=== PATIENT | male | born 1955 | race Two or more races ===

== ENCOUNTER 2025-01-25 14:36 | Inpatient (IN) | payer OTHER ==
[~2025-01-25] VITALS: Ht 177.8 cm; Wt 56.0 kg
--- NOTE | 2025-01-25 15:56 | ED.PDOC ---
GI ASSESSMENT HPI Comments This is a 69 year old male BIBA presenting to the ED with chief complaint of G- Tube displacement. Sister of patient reports that the patient's G-Tube had accidentally been removed 2 days ago and he has been without one since. Sister relays that they were advised by the patient's PCP to come into the ED for further evaluation. Sister states patient has had a G-Tube in place for the past 2 years. Patient denies any abdominal pain, N/V/D, dizziness, fever, or chills. Chief Complaint: Tube Replacement Time Seen by MD: 15:54 Reviewed Notes: Nurses Notes, Medications, Allergies Allergies: Coded Allergies: NO KNOWN ALLERGIES (Unverified , 01/25/25) Information Source: Patient Mode of Arrival: EMS Timing: Days Duration: Since onset Prehospital treatment: None Quality: None Vomitus: None Stool: Normal Severity: Mild Recent: None Recent Hx of: None Pain Location: None Modifying Factors: Nothing Past Medical History PAST MEDICAL HISTORY: Denies Surgical History (Other): G-Tube Family History Family History: Reviewed,noncontributory to illness Social History Smoker: Non-Smoker Alcohol: Denies ETOH Use Drugs: Denies Drug Use Lives In: Home Constitutional: denies: chills, diaphoresis, fatigue, fever, malaise, sweats, weakness, others EENTM: denies: blurred vision, double vision, ear bleeding, ear discharge, ear drainage, ear pain, ear ringing, eye pain, eye redness, hearing loss, mouth pain, mouth swelling, nasal discharge, nose bleeding, nose congestion, nose pain, photophobia, tearing, throat pain, throat swelling, voice changes, others Respiratory: denies: cough, hemoptysis, orthopnea, SOB at rest, shortness of breath, SOB with excertion, stridor, wheezing, others Cardiovascular: denies: chest pain, dizzy spells, diaphoresis, Dyspnea on exertion, edema, irregular heart beat, left arm pain, lightheadedness, palpitati ons, PND, syncope, others Gastrointestinal: denies: abdomen distended, abdominal pain, blood streaked bowels, constipated, diarrhea, dysphagia, difficulty swallowing, hematemesis, melena, nausea, poor appetite, poor fluid intake, rectal bleeding, rectal pain, vomiting, others Genitourinary: denies: burning, dysuria, flank pain, frequency, hematuria, incontinence, penile discharge, penile sore, pain, testicle pain, testicle swelling, urgency, others Neurological: denies: dizziness, fainting, headache, left sided numbness, left sided weakness, numbness, paresthesia, pre-existing deficit, right sided numbness, right sided weakness, seizure, speech problems, tingling, tremors, weakness, others Musculoskeletal: denies: back pain, gout, joint pain, joint swelling, muscle pain, muscle stiffness, neck pain, others Integumetry: denies: bruises, change in color, change in hair/nails, dryness, laceration, lesions, lumps, rash, wounds, others Allergic/Immunocompromised: denies: Difficulty Healing, Frequent Infections, Hives, Itching, others Hematologic/Lymphatic: denies: anemia, blood clots, easy bleeding, easy bruising, swollen glands, others Endocrine: denies: excessive hunger, excessive sweating, excessive thirst, excessive urination, flushing, intolerance to cold, intolerance to heat, unexplained weight gain, unexplained weight loss, others Psychiatric: denies: anxiety, bipolar disorder, depression, hopeless, panic disorder, schizophrenia, sleepless, suicidal, others All Other Systems: Reviewed and Negative Physical Exam General Appearance: No Apparent Distress, Other (Frail appearing) HEENT: Normal ENT Inspection, Pharynx Normal, TMs Normal Neck: Full Range of Motion, Non-Tender, Normal, Normal Inspection Respiratory: Chest Non-Tender, Lungs Clear, No Accessory Muscle Use, No Respiratory Distress, Normal Breath Sounds Cardiovascular: No Edema, No JVD, No Murmur, No Gallop, Normal Peripheral Pulses, Regular Rate/Rhythm Breast Exam: Deferred Gastrointestinal: No Organomegaly, Non Tender, No Pulsatile Mass, Normal Bowel Sounds, Soft, Other (G-Tube site present with no G-Tube in place.) Genitalia: Deferred Pelvic: Deferred Rectal: Deferred Extremities: NOT DONE Neurologic: NOT DONE Cerebellar Function: NOT DONE Reflexes: NOT DONE Skin: Other (Assessment of the G-tube site on the left upper abdomen, site appears to be close, patient will be admitted for surgical evaluation) Lymphatic: NOT DONE Was a procedure done? Was a procedure done?: No GI differential Dx Differential Diagnosis: Other (G-tube complication) X-Ray, Labs, Meds, VS Vital Signs Date Time Temp Pulse Resp B/P (MAP) Pulse Ox O2 Delivery O2 Flow Rate FiO2 01/25/25 14:41 97.7 100 16 116/81 95 97.7 Lab Test 01/25/25 16:37 Range/Units White Blood Count Pending Red Blood Count Pending Hemoglobin Pending Hematocrit Pending Mean Corpuscular Volume Pending Mean Corpuscular Hemoglobin Pending Mean Corpuscular Hemoglobin Concent Pending Red Cell Distribution Width Pending Platelet Count Pending Mean Platelet Volume Pending Neutrophils (%) (Auto) Pending Lymphocytes (%) (Auto) Pending Monocytes (%) (Auto) Pending Basophils (%) (Auto) Pending Neutrophils # (Auto) Pending Lymphocytes # (Auto) Pending Monocytes # (Auto) Pending Sodium Level Pending Potassium Level Pending Chloride Level Pending Carbon Dioxide Level Pending Anion Gap Pending Blood Urea Nitrogen Pending Creatinine Pending Glomerular Filtration Rate Calc Pending BUN/Creatinine Ratio Pending Serum Glucose Pending Calcium Level Pending X-Ray, Labs, Meds, VS Comment Imaging was reviewed by this provider, there is no obvious pathological or acute disease process. Pending radiology review Labs were reviewed by this provider, no abnormalities Vital signs reviewed by this provider, clinically stable Time of 1ST Reevaluation: 17:02 Reevaluation 1ST: Unchanged Patient Education/Counseling: Diagnosis, Treatment Family Education/Counseling: Diagnosis SEPSIS Sepsis Screen Date sepsis recognized/suspect: Jan 25, 2025 Time Sepsis recognized/suspect: 1441 Recent Procedure: No On Antibiotic Therapy: No Respiratory Rate >20: No Heart Rate >90: Yes Temp<36 C (96.8 F) or >38.3 C: No SBP <90 or MAP <65 mmHG: No New Acute Mental Status Change: No Is the patient on CPAP, BIPAP,: No Physician Orders Complete Blood Count (01/25/25 16:26) Basic Metabolic Panel (01/25/25 16:26) Urinalysis (01/25/25 16:26) Vital Signs Date Time Temp Pulse Resp B/P (MAP) Pulse Ox O2 Delivery O2 Flow Rate FiO2 01/25/25 14:41 97.7 100 16 116/81 95 97.7 Laboratory Tests Test 01/25/25 16:37 White Blood Count Pending Departure 1 Departure Time of Disposition: 16:58 Impression: Primary Impression: Complication of gastrostomy tube Disposition: 01 HOME / SELF CARE / HOMELESS Condition: Fair Critical Care Note Critical Care Time?: No Stability Stability form required: No Heart Score Heart Score: Heart Score Response (Comments) Value History N/A 0 EKG N/A 0 Age N/A 0 Risk Factors N/A 0 Troponin N/A 0 Total 0 I personally scribed for LANDON OCONNOR ([email or web address]) on 01/25/25 at 15:56. Electronically submitted by Osmani Lemus ([email or web address]). LANDON OCONNOR Jan 25, 2025 15:56
[2025-01-25 17:00] LABS: Hematocrit 42.6 % (41.0-53.0); Hemoglobin 14.9 g/dL (13.5-17.5); Mean Corpuscular Hemoglobin 31.3 pg (28.0-32.0); Mean Corpuscular Volume 89.4 fL (80.0-100.0); Nucleated Red Blood Cells % 0.1 %
[2025-01-25 17:08] LABS: Chloride 101 mmol/L (98-107); Potassium 4.5 mmol/L (3.5-5.1); Sodium 140 mmol/L (136-145)
[2025-01-25 17:09] LABS: Anion Gap 9 (5-15); Carbon Dioxide 30 mmol/L (20-31)
[2025-01-25 17:13] LABS: Calcium 10.8 mg/dL (8.7-10.4)
[2025-01-25 17:15] LABS: BUN/Creatinine Ratio 19.5 (10.0-20.0); Blood Urea Nitrogen 16 mg/dL (9-23); Glucose 75 mg/dL (74-106)
[2025-01-25] MEDS ORDERED: ONDANSETRON HCL 4 MG/2 ML VIAL IV PRN ×2 (19:15→22:45)
[2025-01-25 19:40] VITALS: PULSE 108; RESP 20; O2SAT 94
[2025-01-25] MEDS ORDERED: ACETAMINOPHEN 650 MG RECT SUPP PR PRN (22:45)
[2025-01-25] MEDS ORDERED: NITROGLYCERIN 0.4 MG SL TAB SL PRN (22:45)
[2025-01-25] MEDS ORDERED: MORPHINE SULFATE INJ 2 MG/ml SYRG IV PRN (22:45)
[2025-01-25] MEDS: D5W/SOD CHL 0.45% 1,000 ML IV SCH (23:30)
[2025-01-26] VITALS (7 sets, daily range): BP systolic 106–114; BP diastolic 54–85; PULSE 74–105; RESP 18–20; TEMP 97.5–98.6; O2SAT 94–100
--- NOTE | 2025-01-26 02:06 | DVHHP2 ---
AUREA SAINI NP 01/26/25 0206: History of Present Illness Reason for Visit: Dislodged gastric tube History of Present Illness 69-year-old male with past medical history of oxygen-dependent COPD, CVA, dementia, depression, anxiety, atrial arrhythmia, dysphagia presents with complaints of a dislodged gastric tube. Information in this HPI is limited due to the patient being a poor historian. It was acquired with the assistance of the patient's sister Linda via telephone. Patient's sister states gastric tube was dislodged 2 nights ago. She contacted patient's PCP who told her that they would need referral to get PEG tube placed again. Home health nurse went into go see the patient yesterday and advised him to go to the emergency department. In the emergency department the provider did attempt to her placed the PEG tube however was unable to. Patient's sister endorses he gets 3 tube feedings daily. Patient has not been eating or drinking adequately the last 2 days. During the emergency department evaluation CBC, CMP is unremarkable. Patient has no complaints of fevers, shortness of breath, chest pain, palpitations, abdominal pain, nausea, vomiting. 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 Psych: Anxiety, Depression Smoke: No ALCOHOL: none Drugs: None Lives: with Family Review of Systems Constitutional: Yes: Weakness; No: Fever, Chills, Sweats, Malaise, Other Eyes: No: Pain, Vision change, Conjunctivae inflammation, Eyelid inflammation, Other, Redness ENT: No: Ear pain, Ear discharge, Nose pain, Nose discharge, Nose congestion, Mouth pain, Mouth swelling, Throat pain, Throat swelling, Other Respiratory: No: Cough, Dry, Shortness of breath, SOB with excertion, Wheezing, Hemoptysis, Pleuritic Pain, Sputum, Wheezing, Other Cardiovascular: No: Chest Pain, Palpitations, Orthopnea, Paroxysmal Noc. Dyspnea, Edema, Lt Headedness, Other Gastrointestinal: Other (Dislodged G-tube); No: Nausea, Vomiting, Abdominal Pain, Diarrhea, Constipation, Melena, Hematochezia Genitourinary: No Dysuria, No Frequency, No Incontinence, No Hematuria, No Retention, No Other Musculoskeletal: No: other, neck pain, shoulder pain, arm pain, back pain, hand pain, leg pain, foot pain Skin: No: Rash, Lesions, Jaundice, Bruising, Other Neurological: No: Weakness, Numbness, Incoordination, Change in speech, Confusion, Seizures, Other Allergies: Coded Allergies: NO KNOWN ALLERGIES (Unverified , 01/25/25) Medications Current Medications Medications Dose Ordered Sig/Tobias Route Start Time Stop Time Status Last Admin Dose Admin Dextrose/Sodium Chloride 1,000 ml @ 75 mls/hr [id number] IV 01/25/25 22:45 01/25/25 23:30 75 MLS/HR Ondansetron HCl 4 mg Q4HP PRN IV 01/25/25 22:45 Enoxaparin Sodium 40 mg DAILY SC 01/26/25 10:00 Nitroglycerin 0.4 mg Q5MINP PRN SL 01/25/25 22:45 Morphine Sulfate 2 mg Q30M PRN IV 01/25/25 22:45 Acetaminophen 650 mg Q6HP PRN NC 01/25/25 22:45 Exam Vital Signs Vital Signs Date Time Temp Pulse Resp B/P (MAP) Pulse Ox O2 Delivery O2 Flow Rate FiO2 01/25/25 19:40 97.7 108 20 111/67 (82) 94 97.7 01/25/25 19:40 Room Air* 0 21 General Appearance: Alert (To self, place), Cooperative, moderate distress, Other (Ill-appearing, malnourished, frail) HEENT: Atraumatic, PERRLA, EOMI Respiratory: Clear to auscultation, Normal air movement Cardiovascular: Regular rate, Normal S1, Normal S2 Abdominal: Normal bowel sounds, No tenderness, Other (Concave abdomen) Extremities: No clubbing, No cyanosis, No edema Neuro: Normal speech Psych/Mental Status: Mental status NL, Mood NL Labs/Xrays Labs Test 01/25/25 16:37 Range/Units White Blood Count 10.4 4.4-10.8 10^3/uL Red Blood Count 4.77 4.5-5.90 10^6/uL Hemoglobin 14.9 13.5-17.5 g/dL Hematocrit 42.6 41.0-53.0 % Mean Corpuscular Volume 89.4 80.0-100.0 fL Mean Corpuscular Hemoglobin 31.3 28.0-32.0 pg Mean Corpuscular Hemoglobin Concent 35.0 32.0-36.0 g/dL Red Cell Distribution Width 13.8 11.8-14.3 % Platelet Count 490 H 140-450 10^3/uL Mean Platelet Volume 7.6 6.9-10.8 fL Neutrophils (%) (Auto) 77.0 37.0-80.0 % Lymphocytes (%) (Auto) 13.5 10.0-50.0 % Monocytes (%) (Auto) 6.6 0.0-12.0 % Eosinophils (%) (Auto) 2.1 0.0-7.0 % Basophils (%) (Auto) 0.8 0.0-2.0 % Neutrophils # (Auto) 8.0 1.6-8.6 10 ^3/uL Lymphocytes # (Auto) 1.4 0.4-5.4 10 ^3/uL Monocytes # (Auto) 0.7 0-1.3 10 ^3/uL Eosinophils # (Auto) 0.2 0-0.8 10 ^3/uL Basophils # (Auto) 0.1 0-0.2 10 ^3/uL Nucleated Red Blood Cells 0.1 % Sodium Level 140 136-145 mmol/L Potassium Level 4.5 3.5-5.1 mmol/L Chloride Level 101 98-107 mmol/L Carbon Dioxide Level 30 20-31 mmol/L Anion Gap 9 5-15 Blood Urea Nitrogen 16 9-23 mg/dL Creatinine 0.82 0.700-1.30 mg/dL Glomerular Filtration Rate Calc 95 >90 mL/min BUN/Creatinine Ratio 19.5 10.0-20.0 Serum Glucose 75 74-106 mg/dL Calcium Level 10.8 H 8.7-10.4 mg/dL SEPSIS Sepsis Screen Date sepsis recognized/suspect: Jan 25, 2025 Time Sepsis recognized/suspect: 1441 Recent Procedure: No On Antibiotic Therapy: No Respiratory Rate >20: No Heart Rate >90: Yes Temp<36 C (96.8 F) or >38.3 C: No SBP <90 or MAP <65 mmHG: No New Acute Mental Status Change: No Is the patient on CPAP, BIPAP,: No Physician Orders Admit (01/25/25 22:38) Code Status (01/25/25 22:38) Vital Signs .PER UNIT PROTOCOL (01/25/25 22:38) Review Orders With Adm. (01/25/25 22:38) Encourage Activity As Tolerate (01/25/25:38) Npo (Nothing By Mouth) Diet (01/26/25 Breakfast) Oxygen By Face Mask (01/25/25:38) Notify Md Of Changes From Base (01/25/25 22:38) Advance Directive (01/25/25:38) Basic Metabolic Panel (01/26/25 05:00) Basic Metabolic Panel (01/27/25 05:00) Basic Metabolic Panel (01/28/25 05:00) Basic Metabolic Panel (01/29/25 05:00) Complete Blood Count (01/26/25 05:00) Complete Blood Count (01/27/25 05:00) Complete Blood Count (01/28/25 05:00) Complete Blood Count (01/29/25 05:00) Complete Blood Count (01/30/25 05:00) D5w/Sod Chl 0.45% (D5w 1/2ns) (01/25/25 22:45) Patient Condition (01/25/25 22:38) Allergies (01/25/25:38) Ondansetron Hcl (Zofran) (01/25/25 22:45) Enoxaparin Sodium (Lovenox) (01/26/25 10:00) Sequential Compression Device (01/25/25 ) Nitroglycerin Sublingual (Ntrostat Subli (01/25/25 22:45) Morphine Sulfate Injection (01/25/25 22:45) Stat Ekg For Chest Pain (01/25/25:38) Notify Md Of Changes From Base (01/25/25 22:38) Ballistics Laboratory Gunsmith For 24 Hours (01/25/25 22:38) Emergency Dysrhythmia Protocol (01/25/25:38) Rhythm Strips Once Every Shift (01/25/25 22:38) Oxygen By Nasal Cannula (01/25/25:38) Prothrombin Time W/ Inr (01/26/25 04:00) Acetaminophen Suppository (Tylenol Suppo (01/25/25 22:45) * [employer] Broker (01/25/25 22:38) * Radiologist Consult (01/25/25 22:44) Vital Signs Date Time Temp Pulse Resp B/P (MAP) Pulse Ox O2 Delivery O2 Flow Rate FiO2 01/25/25 19:40 97.7 108 20 111/67 (82) 94 97.7 01/25/25 19:40 108 20 94 Room Air* 0 21 01/25/25 18:48 98.2 107 18 118/76 (90) 96 98.2 Laboratory Tests Test 01/25/25 16:37 White Blood Count 10.4 10^3/uL (4.4-10.8) Medications Medications Dose Ordered Sig/Tobias Route Start Time Stop Time Status Last Admin Dose Admin Dextrose/Sodium Chloride 1,000 ml @ 75 mls/hr [id number] IV 01/25/25 22:45 01/25/25 23:30 75 MLS/HR Assessment/Plan Assessment/Plan Malfunctioning gastric tube, dislodged Dysphagia Chronic bed bound HX COPD HX CVA HX Dementia, depression, anxiety Plan Admit medical floor Plan for Gastric tube replacement. Gastroenterology consult. Interventional radiology consult IVF Bronchodilators. As needed a supplemental oxygen to maintain O2 saturation great er than 93%. Incentive thermometer. DVT ppx lovenox Plan discussed with: Patient, Other (Sister Linda via telephone) My Orders Orders - AUREA SAINI NP Procedure Category Date Status Time Admit ADMIT 01/25/25 Transmitted 22:38 Code Status CODE 01/25/25 Transmitted 22:38 Vital Signs VALENTIN 01/25/25 In Process 22:38 Review Orders With VALENTIN 01/25/25 In Process 22:38 Encourage Activity As VALENTIN 01/25/25 In Process Tolerate 22:38 Npo (Nothing By DIET 01/26/25 Transmitted Mouth) Diet Breakfast Oxygen By Face Mask RT 01/25/25 Transmitted 22:38 Notify Of Changes VALENTIN 01/25/25 In Process From Base 22:38 Advance Directive VALENTIN 01/25/25 In Process 22:38 Basic Metabolic Panel LAB 01/26/25 Logged 05:00 Basic Metabolic Panel LAB 01/27/25 Verified 05:00 Basic Metabolic Panel LAB 01/28/25 Verified 05:00 Basic Metabolic Panel LAB 01/29/25 Verified 05:00 Complete Blood Count LAB 01/26/25 Logged 05:00 Complete Blood Count LAB 01/27/25 Verified 05:00 Complete Blood Count LAB 01/28/25 Verified 05:00 Complete Blood Count LAB 01/29/25 Verified 05:00 Complete Blood Count LAB 01/30/25 Verified 05:00 D5w/Sod Chl 0.45% PHA 01/25/25 In Process (D5w 1/2ns) 22:45 Patient Condition ORDERS 01/25/25 Transmitted 22:38 Allergies VALENTIN 01/25/25 In Process 22:38 Ondansetron Hcl PHA 01/25/25 In Process (Zofran) 22:45 Enoxaparin Sodium PHA 01/26/25 In Process (Lovenox) 10:00 Sequential VALENTIN 01/25/25 In Process Compression Device Nitroglycerin PHA 01/25/25 In Process Sublingual (Ntrostat 22:45 Morphine Sulfate PHA 01/25/25 In Process Injection 22:45 Stat Ekg For Chest VALENTIN 01/25/25 In Process Pain 22:38 Notify Of Changes [facility] [place] 01/25/25 In Process From Base 22:38 Ballistics Laboratory Gunsmith For [facility] [place] 01/25/25 In Process 24 Hours 22:38 Emergency Dysrhythmia [facility] 01/25/25 In Process Protocol 22:38 Rhythm Strips Once [facility] [place] 01/25/25 In Process Every Shift 22:38 Oxygen By Nasal RT 01/25/25 Transmitted Cannula 22:38 Prothrombin Time W/ LAB 01/26/25 Logged INR 04:00 Acetaminophen PHA 01/25/25 In Process Suppository (Tylenol 22:45 * [employer] CONS 01/25/25 Transmitted 22:38 * Radiologist Consult CONS 01/25/25 Transmitted 22:44 Date of Service: Jan 26, 2025 Billing Provider: VERNON GENAO MD Common Visit Codes: NOT BILLABLE VERNON GENAO MD 01/26/25 1549: Review of Systems Allergies: Coded Allergies: NO KNOWN ALLERGIES (Unverified , 01/25/25) AUREA SAINI NP Jan 26, 2025 02:06 VERNON GENAO MD Jan 26, 2025 15:49
[2025-01-26] MEDS ORDERED: ASPI1TAB20 PO (04:00)
[2025-01-26] MEDS ORDERED: DIVA-91 PO (04:09)
[2025-01-26 04:16] LABS: Urine Protein, UAD 1+ (Negative)
[2025-01-26] MEDS ORDERED: CHOL20007 OR (04:20)
--- NOTE | 2025-01-26 06:46 | DVH ---
EXAM: XY CHEST XRAY 1 VIEW HISTORY: DOCTORS REQUEST COMPARISON: For reasons unknown, numerous previous chest x-rays were not made available on the PACS system for viewing. TECHNIQUE: Portable upright AP view of the chest was performed. FINDINGS: No pneumothorax, consolidative infiltrates, or pulmonary edema. Skin lines overlie the right hemithorax simulating pneumothorax. The heart is not enlarged. IMPRESSION: No acute intrathoracic process.
[2025-01-26 07:57] LABS: Hematocrit 51.4 % (41.0-53.0); Hemoglobin 17.2 g/dL (13.5-17.5); Mean Corpuscular Hemoglobin 30.8 pg (28.0-32.0); Mean Corpuscular Volume 91.8 fL (80.0-100.0); Nucleated Red Blood Cells % 0.0 %
[2025-01-26 08:00] LABS: INR 1.08 (0.9-1.15); Prothrombin Time 11.4 sec (9.3-11.8)
[2025-01-26] MEDS: ENOXAPARIN SOD 40 MG/0.4 ML SYRINGE SC SCH (10:00)
[2025-01-26 10:15] LABS: Chloride 101 mmol/L (98-107); Sodium 140 mmol/L (136-145)
[2025-01-26 10:16] LABS: Anion Gap 17 (5-15); Carbon Dioxide 22 mmol/L (20-31)
[2025-01-26 10:21] LABS: BUN/Creatinine Ratio 25.0 (10.0-20.0); Blood Urea Nitrogen 22 mg/dL (9-23); Glucose 98 mg/dL (74-106)
[2025-01-26 10:24] LABS: Calcium 11.3 mg/dL (8.7-10.4); Potassium 5.3 mmol/L (3.5-5.1)
--- NOTE | 2025-01-26 11:22 | DVHCONRES ---
Date Seen: Jan 26, 2025 Resident Creating Document: ATIF MURILLO RESIDENT History of Present Illness 69-year-old male with past medical history of oxygen-dependent COPD, CVA, dementia, depression, anxiety, atrial arrhythmia, dysphagia presents with complaints of a dislodged gastric tube. Information in this HPI is limited due to the patient being a poor historian. It was acquired with the assistance of the patient's sister Linda via telephone. Patient's sister states gastric tube was dislodged 2 nights ago. She contacted patient's PCP who told her that they would need referral to get PEG tube placed again. Home health nurse went into go see the patient yesterday and advised him to go to the emergency department. In the emergency department the provider did attempt to her placed the PEG tube however was unable to. Patient's sister endorses he gets 3 tube feedings daily. Patient has not been eating or drinking adequately the last 2 days. During the emergency department evaluation CBC, CMP is unremarkable. Patient has no complaints of fevers, shortness of breath, chest pain, palpitations, abdominal pain, nausea, vomiting. GI consulted for PEG tube replacement Patient seen and examined. A&O x2. Patient would need EGD and PEG tube placement as the foramen appears to be closed Allergies: Coded Allergies: NO KNOWN ALLERGIES (Unverified , 01/25/25) Home Meds Reported Medications Cholecalciferol (VITAMIN D3) 2,000 Unit Tab, 2000 UNIT OR DAILY, TAB 01/26/25 Divalproex Sodium (Depakote) 500 Mg Tab, 500 MG PO DAILY, TAB 01/26/25 Aspirin (Aspir-81) 81 Mg Tab, 1 TAB PO DAILY, #90 TAB 1 Refill 01/26/25 Current Medications Current Medications Medications (Trade) Dose Ordered Sig/Tobias Route PRN Reason Start Time Stop Time Status Last Admin Ondansetron HCl (Zofran) 4 mg Q4HP PRN IV NAUSEA / VOMITING 01/25/25 19:15 01/25/25 20:42 DC Dextrose/Sodium Chloride 1,000 ml @ 75 mls/hr [id number] IV 01/25/25 22:45 01/25/25 23:30 Ondansetron HCl (Zofran) 4 mg Q4HP PRN IV NAUSEA / VOMITING 01/25/25 22:45 Enoxaparin Sodium (Lovenox) 40 mg DAILY SC 01/26/25 10:00 Nitroglycerin (Ntrostat Sublingual) 0.4 mg Q5MINP PRN SL FOR CHEST PAIN 01/25/25 22:45 Morphine Sulfate 2 mg Q30M PRN IV FOR CHEST PAIN 01/25/25 22:45 Acetaminophen (Tylenol Suppository) 650 mg Q6HP PRN [place] PAIN SCALE 1-3 OR TEMP>100.4 01/25/25 22:45 Vital Signs Vital Signs Date Time Temp Pulse Resp B/P (MAP) Pulse Ox O2 Delivery O2 Flow Rate FiO2 01/26/25 08:00 103 01/26/25 08:00 97.7 21 98/58 (71) 97 97.7 01/26/25 07:31 Nasal Cannula* 2 28 Physical Exam Patient lying in bed, in no acute distress General: Cachectic-appearing, afebrile, palor, mucosae are moist Cardiovascular: Regular S1 and S2. No murmurs, gallops or rubs. No JVD elevation. No pedal edema Respiratory: Normal B/L air entry on room air. Clear lung sounds on auscultation Abdomen: Soft, nontender, nondistended, normoactive bowel sounds, no rebound tenderness, dislodged G-tube, foramen appears to be closed at this time. Genitourinary: Deferred Psych/Mental Status: A/Ox2 Labs/Diagnostic Data Labs Test 01/26/25 07:32 01/25/25 20:55 Range/Units White Blood Count 18.5 #H 4.4-10.8 10^3/uL Red Blood Count 5.60 4.5-5.90 10^6/uL Hemoglobin 17.2 # 13.5-17.5 g/dL Hematocrit 51.4 # 41.0-53.0 % Mean Corpuscular Volume 91.8 80.0-100.0 fL Mean Corpuscular Hemoglobin 30.8 28.0-32.0 pg Mean Corpuscular Hemoglobin Concent 33.6 32.0-36.0 g/dL Red Cell Distribution Width 14.3 11.8-14.3 % Platelet Count 417 140-450 10^3/uL Mean Platelet Volume 7.6 6.9-10.8 fL Neutrophils (%) (Auto) 90.8 H 37.0-80.0 % Lymphocytes (%) (Auto) 4.2 L 10.0-50.0 % Monocytes (%) (Auto) 4.5 0.0-12.0 % Eosinophils (%) (Auto) 0.2 0.0-7.0 % Basophils (%) (Auto) 0.3 0.0-2.0 % Neutrophils # (Auto) 16.8 H 1.6-8.6 10 ^3/uL Lymphocytes # (Auto) 0.8 0.4-5.4 10 ^3/uL Monocytes # (Auto) 0.8 0-1.3 10 ^3/uL Eosinophils # (Auto) 0 0-0.8 10 ^3/uL Basophils # (Auto) 0.1 0-0.2 10 ^3/uL Nucleated Red Blood Cells 0.0 % Prothrombin Time 11.4 9.3-11.8 sec Prothrombin Time INR 1.08 0.9-1.15 Sodium Level 140 136-145 mmol/L Potassium Level 5.3 H 3.5-5.1 mmol/L Chloride Level 101 98-107 mmol/L Carbon Dioxide Level 22 20-31 mmol/L Anion Gap 17 H 5-15 Blood Urea Nitrogen 22 9-23 mg/dL Creatinine 0.88 0.700-1.30 mg/dL Glomerular Filtration Rate Calc 93 >90 mL/min BUN/Creatinine Ratio 25.0 H 10.0-20.0 Serum Glucose 98 74-106 mg/dL Calcium Level 11.3 H 8.7-10.4 mg/dL Urine Color Yellow Yellow Urine Clarity Turbid H Clear Urine pH 6.0 5.0-9.0 Urine Specific [place] 1.030 1.001-1.035 Urine Protein 1+ H Negative Urine Ketones 1+ H Negative Urine Blood Negative Negative /uL Urine Nitrite 2+ H Negative Urine Bilirubin Negative Negative Urine Urobilinogen Normal Negative mg/dL Urine Leukocyte Esterase Trace Negative /uL Urine RBC None seen 0 - 3 /hpf Urine Microscopic WBC 3 0-3 /HPF Urine Squamous Epithelial Cells Few <5 /hpf Urine Calcium Oxalate Crystals Mod None Seen Urine Bacteria Many H None Seen /hpf Urine Mucus Few None Seen Urine Glucose Normal Normal mg/dL Assessment PEG tube dislodgement Dysphagia Failure to thrive Hyperkalemia COPD on chronic oxygen dependence History of CVA History of dementia Plan/Recommendation Plan: Recommendation: Dr. Gonzalez: Patient will be scheduled for PEG tube reinsertion with upper EGD 01/27/2025. NPO after midnight. Obtain consents. Follow up with CMP PT/INR WNL Started Clinimix NPO after midnight We will continue to follow up Thank you for consulting GI Case discussed Dr. Gonzalez Plan discussed with: Other (Nurse) ATIF MURILLO RESIDENT Jan 26, 2025 11:22
[2025-01-26] MEDS ORDERED: DEXTROSE (50%) 50ML SYRG IV PRN (11:30)
[2025-01-26] MEDS ORDERED: CLINIMIX PER PHARMACY 0 ML IV SCH (11:30)
[2025-01-26 11:31] LABS: Alanine Aminotransferase 16.0 U/L (7-40); Bilirubin, Total 0.7 mg/dL (0.2-1.0)
[2025-01-26 11:35] LABS: Alkaline Phosphatase 141.0 U/L (46-116)
[2025-01-26 11:36] LABS: Albumin 4.9 g/dL (3.2-4.8); Total Protein 9.0 g/dL (5.7-8.2)
[2025-01-26] MEDS: ACCU-CHEK COMFORT CURVE STRIP VI SCH (12:00)
[2025-01-26 13:35] LABS: Bilirubin, Direct 0.2 mg/dL (<0.3)
[2025-01-26] MEDS: AMINO ACID INFUSION IN D10W 1,000 ML IV SCH (22:20)
[2025-01-27] VITALS (11 sets, daily range): BP systolic 107–129; BP diastolic 54–68; PULSE 89–111; RESP 14–50; TEMP 97.4–99; O2SAT 94–100
[2025-01-27] MEDS: InsuLIN REG 1unit/0.01ml Soln (100units/ml) SC SCH
[2025-01-27 07:29] LABS: Hematocrit 44.5 % (41.0-53.0); Hemoglobin 15.0 g/dL (13.5-17.5); Mean Corpuscular Hemoglobin 30.0 pg (28.0-32.0); Mean Corpuscular Volume 89.0 fL (80.0-100.0)
[2025-01-27 08:35] LABS: Total Cells Counted 100.0 (100)
[2025-01-27 11:04] LABS: Albumin 3.7 g/dL (3.2-4.8); Alkaline Phosphatase 106 U/L (46-116); Anion Gap 10 (5-15); BUN/Creatinine Ratio 27.4 (10.0-20.0); Blood Urea Nitrogen 20 mg/dL (9-23); Calcium 10.2 mg/dL (8.7-10.4); Carbon Dioxide 27 mmol/L (20-31); Chloride 102 mmol/L (98-107); Glucose 102 mg/dL (74-106); Magnesium 1.6 mg/dL (1.6-2.6); Potassium 4.3 mmol/L (3.5-5.1); Sodium 139 mmol/L (136-145); Total Protein 6.9 g/dL (5.7-8.2); Triglycerides 42 mg/dL (< 150)
[2025-01-27 11:05] LABS: Bilirubin, Total 0.7 mg/dL (0.2-1.0)
[2025-01-27 11:14] LABS: Alanine Aminotransferase < 9 U/L (7-40)
[2025-01-27] MEDS: ceFAZolin 1GM/50ML 50 ML IV ONE (14:15)
[2025-01-27] MEDS ORDERED: PROPOFOL 10 MG/ML 20 ML IV ONE (14:30)
[2025-01-27] MEDS ORDERED: LIDOCAINE 2% (LOCAL ANESTH.) PF 5ml SDV ONE (14:30)
[2025-01-27] MEDS ORDERED: LIDOCAINE 1% INJ PF 5ML AMP ONE (14:30)
[2025-01-27] MEDS ORDERED: ceFAZolin 1GM VL ONE (14:40)
--- NOTE | 2025-01-27 14:56 | DVHOP2 ---
Operative Report DATE OF OPERATION: 01/27/25 PROCEDURE: Upper Endoscopy with PEG tube placement. PREOPERATIVE INDICATION: The patient is a 69 -year-old male undergoing endoscopy for placement of a new PEG tube, previous PEG tube was dislodged and the gastrostomy site was closed POSTOPERATIVE DIAGNOSES: 1. Upper endoscopy revealed [id number] gastritis with some flecks of old blood 2. A percutaneous gastrostomy tube was placed through the anterior abdominal wall under sterile conditions by Dr. Joe Gonzalez using endoscopic guidance and assistance by wv going through the same gastrostomy opening however internally a new opening was created in the body of the stomach close to the previous g astrostomy tube site 3. Placement of the tube was confirmed by repeat endoscopy and G-tube site was prepped and dressed in a sterile PROCEDURE PERFORMED BY: Jeanne Gonzalez GI NURSE: Daniella SCOPE: Olympus videoendoscope. ASA CLASS: 3 PREOPERATIVE MEDICATIONS: Mac sedation, Julio César Michaud PROCEDURE IN DETAIL: After obtaining an informed consent, the patient was placed on left lateral decubitus position. The patient was then sedated with the above medications. A bite block was placed between his teeth. The endoscope was then passed through the oropharynx, into the esophagus, and through the stomach and pylorus up to the second and third part of the duodenum. The endoscope was then withdrawn. The body of the stomach showed evidence of moderate gastritis with some flecks of old blood On retroflexion the fundus and cardia were normal. The endoscope light was identified through the anterior abdominal wall Under sterile conditions a new percutaneous gastrostomy tube was placed through the anterior abdominal wall through the same gastrostomy port However the needle presented or internally a few cm away from the previous gastrostomy tube site which was closed. Percutaneous gastrostomy tube was placed through the anterior abdominal wall using endoscopic guidance and assistance as per standard protocol Repeat endoscopy was performed to confirm adequate placement. The G-tube site was prepped and dressed in a sterile fashion The patient tolerated the procedure well without difficulty. COMPLICATIONS : None SPECIMENS: None DISPOSITION: Transfer back to the floor Stable PLAN: 1. See postop PEG tube placement instructions 2. Will place pt on Protonix 40 mg bid IV 3. Continue IV Clinimix for now until G-tube feedings have been resumed JEANNE GONZALEZ MD Jan 27, 2025 14:56
--- NOTE | 2025-01-27 15:02 | DVHINCON2 ---
Date of service: Jan 27, 2025 Allergies: Coded Allergies: NO KNOWN ALLERGIES (Unverified , 01/25/25) Home Meds Reported Medications Cholecalciferol (VITAMIN D3) 2,000 Unit Tab, 2000 UNIT OR DAILY, TAB 01/26/25 Divalproex Sodium (Depakote) 500 Mg Tab, 500 MG PO DAILY, TAB 01/26/25 Aspirin (Aspir-81) 81 Mg Tab, 1 TAB PO DAILY, #90 TAB 1 Refill 01/26/25 Current Medications Current Medications Medications (Trade) Dose Ordered Sig/Tobias Route PRN Reason Start Time Stop Time Status Last Admin Insulin Human Regular (InsuLIN R) FOLLOW SLIDING SCALE Q6HR SC 01/27/25 00:00 01/27/25 06:02 Amino Acids/ Electrolytes/ Dextrose 1,000 ml @ 41 mls/hr DAILY@2200 IV 01/26/25 22:00 01/26/25 22:20 Vital Signs Vital Signs Date Time Temp Pulse Resp B/P (MAP) Pulse Ox O2 Delivery O2 Flow Rate FiO2 01/27/25 12:54 97.4 107 16 121/63 (82) 96 97.4 01/27/25 08:00 Nasal Cannula* 2 28 Labs/Diagnostic Data Labs Test 01/27/25 12:03 01/27/25 10:10 01/27/25 06:49 01/26/25 07:32 Range/Units POC Glucose 125 H 70-106 mg/dl Sodium Level 139 136-145 mmol/L Potassium Level 4.3 3.5-5.1 mmol/L Chloride Level 102 98-107 mmol/L Carbon Dioxide Level 27 20-31 mmol/L Anion Gap 10 5-15 Blood Urea Nitrogen 20 9-23 mg/dL Creatinine 0.73 0.700-1.30 mg/dL Glomerular Filtration Rate Calc 98 >90 mL/min BUN/Creatinine Ratio 27.4 H 10.0-20.0 Serum Glucose 102 74-106 mg/dL Calcium Level 10.2 8.7-10.4 mg/dL Phosphorus Level 2.4 2.4-5.1 mg/dL Magnesium Level 1.6 1.6-2.6 mg/dL Total Bilirubin 0.7 0.2-1.0 mg/dL Aspartate Amino Transferase (AST) 16 13-40 U/L Alanine Aminotransferase (ALT) < 9 7-40 U/L Alkaline Phosphatase 106 46-116 U/L Total Protein 6.9 5.7-8.2 g/dL Albumin 3.7 3.2-4.8 g/dL Triglycerides Level 42 < 150 mg/dL White Blood Count 28.8 #H 4.4-10.8 10^3/uL Red Blood Count 5.00 4.5-5.90 10^6/uL Hemoglobin 15.0 13.5-17.5 g/dL Hematocrit 44.5 # 41.0-53.0 % Mean Corpuscular Volume 89.0 80.0-100.0 fL Mean Corpuscular Hemoglobin 30.0 28.0-32.0 pg Mean Corpuscular Hemoglobin Concent 33.8 32.0-36.0 g/dL Red Cell Distribution Width 13.9 11.8-14.3 % Platelet Count 372 140-450 10^3/uL Mean Platelet Volume 8.1 6.9-10.8 fL Neutrophils (%) (Auto) 37.0-80.0 % Lymphocytes (%) (Auto) 10.0-50.0 % Monocytes (%) (Auto) 0.0-12.0 % Basophils (%) (Auto) 0.0-2.0 % Neutrophils # (Auto) 1.6-8.6 10 ^3/uL Lymphocytes # (Auto) 0.4-5.4 10 ^3/uL Monocytes # (Auto) 0-1.3 10 ^3/uL Differential Total Cells Counted 100.0 100 Neutrophils % (Manual) 92 H 37.0-80.0 Band Neutrophils % (Manual) 2 Lymphocytes % (Manual) 3 L 10.0-50.0 Monocytes % (Manual) 3 0-12 Eosinophils % (Manual) 0 0-7 Basophils % (Manual) 0 0.0-2.0 Metamyelocytes % (manual) 0 Myelocytes % (Manual) 0 Promyelocytes % (Manual) 0 Blast Cells % (Manual) 0 Reactive Lymphocytes 0 Platelet Estimate Adequate Eosinophils (%) (Auto) 0.2 0.0-7.0 % Eosinophils # (Auto) 0 0-0.8 10 ^3/uL Basophils # (Auto) 0.1 0-0.2 10 ^3/uL Nucleated Red Blood Cells 0.0 % Prothrombin Time 11.4 9.3-11.8 sec Prothrombin Time INR 1.08 0.9-1.15 Direct Bilirubin 0.2 <0.3 mg/dL Test 01/25/25 20:55 Range/Units Urine Color Yellow Yellow Urine Clarity Turbid H Clear Urine pH 6.0 5.0-9.0 Urine Specific [place] 1.030 1.001-1.035 Urine Protein 1+ H Negative Urine Ketones 1+ H Negative Urine Blood Negative Negative /uL Urine Nitrite 2+ H Negative Urine Bilirubin Negative Negative Urine Urobilinogen Normal Negative mg/dL Urine Leukocyte Esterase Trace Negative /uL Urine RBC None seen 0 - 3 /hpf Urine Microscopic WBC 3 0-3 /HPF Urine Squamous Epithelial Cells Few <5 /hpf Urine Calcium Oxalate Crystals Mod None Seen Urine Bacteria Many H None Seen /hpf Urine Mucus Few None Seen Urine Glucose Normal Normal mg/dL Assessment [id number] DYSPHAGIA DISPLACED G TUBE EGD BY DR Elvia ALCANTARA PEG PLACEMENT EBL 1 CC NO DRAINS NO COMPLICATIONS Plan discussed with: Other NARENDRA ALCANTARA MD Jan 27, 2025 15:02
[2025-01-27] MEDS: ALBUTEROL SULF 2.5 MG/0.5ML(0.5%) NEB SOLN ONE (15:11)
[2025-01-27] MEDS: IPRATROPIUM BROM 0.5 MG/2.5ML INH SOL ONE (15:11)
--- NOTE | 2025-01-27 15:12 | DVHOP ---
DATE OF SURGERY: 01/27/2025 PREPROCEDURE DIAGNOSIS: Dysphagia, displaced G-tube. POSTPROCEDURE DIAGNOSIS: Dysphagia, displaced G-tube. PROCEDURE: Replacement of the G-tube. SURGEON: Syed Gonzalez MD DESCRIPTION OF PROCEDURE: The endoscopy was carried out by Dr. Patricia Gonzalez and she will dictate her part. The patient was prepped and draped in the usual sterile fashion in the supine position with the left upper abdomen area exposed. The previous G-tube site was noted and Angiocatheter needle was advanced into position after the endoscopy was carried out. The needle was seen and it was withdrawn. The cannula left in place and the guidewire was advanced into position. The cannula was withdrawn and the guidewire was grasped by the endoscope and pulled out from the mouth and the G-tube was engaged with the guidewire and pulled back into the mouth and into the esophagus and into the anterior wall of the stomach. The cuff was situated very well and the final connection of the G-tube was established and a dressing was applied. The patient tolerated the procedure well. Repeat endoscopy confirmed good placement of the G-tube. MD RODNEY Alfredo/NILSON TID: [id number] RECEIPT: [id number] cc: Jaimie Meyers
[2025-01-27] MEDS: IPRATROPIUM BROM 0.5 MG/2.5ML INH SOL NEB ONE (15:25)
[2025-01-27] MEDS: ALBUTEROL SULF 2.5 MG/0.5ML(0.5%) NEB SOLN NEB ONE (15:25)
--- NOTE | 2025-01-27 15:43 | DVHINCON2 ---
DATE OF CONSULTATION: 01/27/2025 HISTORY OF PRESENT ILLNESS: This patient is 69 years old with past medical history of oxygen-dependent COPD, CVA, dementia, depression, and anxiety. Most of the information obtained from the chart and came in with dysphagia and complaints of dislodged gastric tube. I was asked to see this patient in regards to a replacement of the G-tube and the endoscopy was done by Dr. Patricia Gonzalez. PAST MEDICAL HISTORY: Please refer to records. PAST SURGICAL HISTORY: As above. PHYSICAL EXAMINATION: VITAL SIGNS: Afebrile, stable signs. HEENT: With no evidence of pallor, cyanosis, or jaundice. NECK: Supple and nontender, with no thyromegaly or lymphadenopathy. CHEST AND LUNGS: Clear. HEART: Within normal limits. ABDOMEN: Soft. There is a displaced PEG tube site in the left upper abdomen. NEUROLOGIC: Not assessed. EXTREMITIES: Unremarkable. CLINICAL IMPRESSION: Displaced G-tube with dysphagia. PLAN: Would be to proceed with placement of the G-tube in conjunction with Dr. Patricia Gonzalez's endoscopy. Benefits and risks were discussed and consent obtained. MD RODNEY Alfredo/NILSON TID: [id number] RECEIPT: [id number] cc: Jaimie Meyers
--- NOTE | 2025-01-27 16:08 | DVHPN2 ---
Subjective Patient is currently in OR for G-tube placement. Changes from previous H/P or p: No Changes Eyes: No Pain, No Vision change, No Conjunctivae inflammation, No Eyelid inflammation, No Other, No Redness ENT: No Ear pain, No Ear discharge, No Nose pain, No Nose discharge, No Nose congestion, No Mouth pain, No Mouth swelling, No Throat pain, No Throat swelling, No Other Cardiovascular: No Chest Pain, No Palpitations, No Orthopnea, No Paroxysmal Noc. Dyspnea, No Edema, No Lt Headedness, No Other Respiratory: No Cough, No Dry, No Shortness of breath, No SOB with excertion, No Wheezing, No Hemoptysis, No Pleuritic Pain, No Sputum, No Other Gastrointestinal: No Nausea, No Vomiting, No Abdominal Pain, No Diarrhea, No Constipation, No Melena, No Hematochezia; Other (Dislodged G-tube) Genitourinary: No Dysuria, No Frequency, No Incontinence, No Hematuria, No Retention, No Other Musculoskeletal: No other, No neck pain, No shoulder pain, No arm pain, No back pain, No hand pain, No leg pain, No foot pain Skin: No Rash, No Lesions, No Jaundice, No Bruising, No Other Objective Vitals Vital Signs Date Time Temp Pulse Resp B/P (MAP) Pulse Ox O2 Delivery O2 Flow Rate FiO2 01/27/25 15:25 98 18 100 01/27/25 15:24 122/68 (86) 01/27/25 15:19 Room Air* 0 21 01/27/25 14:54 97.5 97.5 Intake/Output Intake and Output 01/27/25 07:00 Intake Total 0 ml Output Total 525 ml Balance -525 ml Intake Oral 0 ml Output Urine Total 525 ml Medications Current Medications Medications Dose Ordered Sig/Tobias Route Start Time Stop Time Status Last Admin Dose Admin Dextrose/Sodium Chloride 1,000 ml @ 75 mls/hr [id number] IV 01/25/25 22:45 01/27/25 01:25 75 MLS/HR Ondansetron HCl 4 mg Q4HP PRN IV 01/25/25 22:45 Enoxaparin Sodium 40 mg DAILY SC 01/26/25 10:00 Nitroglycerin 0.4 mg Q5MINP PRN SL 01/25/25 22:45 Morphine Sulfate 2 mg Q30M PRN IV 01/25/25 22:45 Acetaminophen 650 mg Q6HP PRN NE 01/25/25 22:45 Amino Acids 0 ml @ 0 mls/hr PER PHARMACY IV 01/26/25 11:30 Diagnostic Test (Pha) 1 strip Q6HR 01/26/25 12:00 01/27/25 12:06 1 STRIP Dextrose 50 ml UD PRN IV 01/26/25 11:30 Insulin Human Regular FOLLOW SLIDING SCALE Q6HR SC 01/27/25 00:00 01/27/25 06:02 2 UNITS Amino Acids/ Electrolytes/ Dextrose 1,000 ml @ 41 mls/hr DAILY@2200 IV 01/26/25 22:00 01/26/25 22:20 41 MLS/HR Enteral Nutritional Formula 240 ml Q6HR PO 01/28/25 06:00 Pantoprazole Sodium 40 mg BID IV 01/27/25 22:00 Laboratory Results Laboratory Tests 01/27/25 06:49 01/27/25 10:10 Chemistry Test 01/27/25 10:10 Albumin 3.7 g/dL (3.2-4.8) Calcium Level 10.2 mg/dL (8.7-10.4) Magnesium Level 1.6 mg/dL (1.6-2.6) Phosphorus Level 2.4 mg/dL (2.4-5.1) Total Protein 6.9 g/dL (5.7-8.2) Lipid panel Test 01/27/25 10:10 Triglycerides Level 42 mg/dL (< 150) LFT Test 01/27/25 10:10 Alanine Aminotransferase (ALT) < 9 U/L (7-40) Alkaline Phosphatase 106 U/L (46-116) Aspartate Amino Transferase (AST) 16 U/L (13-40) Total Bilirubin 0.7 mg/dL (0.2-1.0) Urinalysis Test 01/25/25 20:55 Urine Color Yellow (Yellow) Urine Clarity Turbid (Clear) H Urine pH 6.0 (5.0-9.0) Urine Specific [place] 1.030 (1.001-1.035) Urine Protein 1+ (Negative) H Urine Ketones 1+ (Negative) H Urine Blood Negative /uL (Negative) Urine Nitrite 2+ (Negative) H Urine Bilirubin Negative (Negative) Urine Urobilinogen Normal mg/dL (Negative) Urine Leukocyte Esterase Trace /uL (Negative) Urine RBC None seen /hpf (0 - 3) Urine Microscopic WBC 3 /HPF (0-3) Urine Squamous Epithelial Cells Few /hpf (<5) Urine Calcium Oxalate Crystals Mod (None Seen) Urine Bacteria Many /hpf (None Seen) H Urine Mucus Few (None Seen) Urine Glucose Normal mg/dL (Normal) Assessment/Plan Assessment/Plan 69-year-old male with a known history of chronic bed-bound status, history of CVA, status post PEG tube placement, dementia anxiety and depression disorder presented to the hospital with a dislodgement of G-tube 1. Malfunctioning G-tube, currently in OR for replacement 2. Chronic bed-bound status 3. History of COPD 4. Chronic respiratory failure on home O2 5. History of CVA 6. Alzheimer dementia 7. Anxiety and depression disorder -follow up General surgery for G-tube placement, wound care discussed with the bedside RN. Plan discussed with: Patient, Other Problem List: (1) Complication of gastrostomy tube Date of Service: Jan 27, 2025 Billing Provider: VERNON GENAO MD Common Visit Codes: NOT BILLABLE VERNON GENAO MD Jan 27, 2025 16:08
[2025-01-27] MEDS: PANTOPRAZOLE 40 MG/10 ML VIAL INJ IV SCH (22:00)
[2025-01-27] MEDS ORDERED: AMINO ACID INFUSION IN D10W 1,000 ML IV SCH (22:00)
[2025-01-28] VITALS (9 sets, daily range): BP systolic 116–143; BP diastolic 64–76; PULSE 85–101; RESP 17–20; TEMP 97.8–98.2; O2SAT 95–98
[2025-01-28] MEDS: ENSURE CLEAR Apple 8oz Carton PO SCH (06:00)
[2025-01-28 08:04] LABS: Hematocrit 39.2 % (41.0-53.0); Hemoglobin 12.8 g/dL (13.5-17.5); Mean Corpuscular Hemoglobin 30.3 pg (28.0-32.0); Mean Corpuscular Volume 92.9 fL (80.0-100.0)
[2025-01-28 08:12] LABS: INR 1.14 (0.9-1.15); Partial Thromboplastin Time 23.2 SEC (24.5-34.5); Prothrombin Time 11.9 sec (9.3-11.8)
[2025-01-28 08:19] LABS: Total Cells Counted 100.0 (100)
[2025-01-28 09:48] LABS: Chloride 99 mmol/L (98-107); Potassium 3.9 mmol/L (3.5-5.1); Sodium 137 mmol/L (136-145)
[2025-01-28 09:49] LABS: Anion Gap 11 (5-15); Carbon Dioxide 27 mmol/L (20-31)
[2025-01-28 09:50] LABS: Calcium 10.2 mg/dL (8.7-10.4)
[2025-01-28 09:54] LABS: Glucose 101 mg/dL (74-106)
[2025-01-28 09:55] LABS: BUN/Creatinine Ratio 26.2 (10.0-20.0); Blood Urea Nitrogen 17 mg/dL (9-23)
[2025-01-28 10:30] LABS: Magnesium 1.6 mg/dL (1.6-2.6)
--- NOTE | 2025-01-28 16:39 | DVHPN2 ---
Subjective Patient is status post G-tube placement, leukocytosis trending up. We will draw blood cultures and start empirical IV antibiotics can we will get Infectious Disease involved. Changes from previous H/P or p: No Changes Eyes: No Pain, No Vision change, No Conjunctivae inflammation, No Eyelid inflammation, No Other, No Redness ENT: No Ear pain, No Ear discharge, No Nose pain, No Nose discharge, No Nose congestion, No Mouth pain, No Mouth swelling, No Throat pain, No Throat swelling, No Other Cardiovascular: No Chest Pain, No Palpitations, No Orthopnea, No Paroxysmal Noc. Dyspnea, No Edema, No Lt Headedness, No Other Respiratory: No Cough, No Dry, No Shortness of breath, No SOB with excertion, No Wheezing, No Hemoptysis, No Pleuritic Pain, No Sputum, No Other Gastrointestinal: No Nausea, No Vomiting, No Abdominal Pain, No Diarrhea, No Constipation, No Melena, No Hematochezia; Other (Dislodged G-tube) Genitourinary: No Dysuria, No Frequency, No Incontinence, No Hematuria, No Retention, No Other Musculoskeletal: No other, No neck pain, No shoulder pain, No arm pain, No back pain, No hand pain, No leg pain, No foot pain Skin: No Rash, No Lesions, No Jaundice, No Bruising, No Other Objective Vitals Vital Signs Date Time Temp Pulse Resp B/P (MAP) Pulse Ox O2 Delivery O2 Flow Rate FiO2 01/28/25 12:43 98.0 97 18 123/69 (87) 97 98.0 01/28/25 08:00 Nasal Cannula* 2 28 Intake/Output Intake and Output 01/28/25 07:00 Intake Total 10 ml Balance 10 ml Intake Oral 0 ml IV Total 10 ml # Voids 2 Medications Current Medications Medications Dose Ordered Sig/Tobias Route Start Time Stop Time Status Last Admin Dose Admin Dextrose/Sodium Chloride 1,000 ml @ 75 mls/hr [id number] IV 01/25/25 22:45 01/28/25 06:17 75 MLS/HR Ondansetron HCl 4 mg Q4HP PRN IV 01/25/25 22:45 Enoxaparin Sodium 40 mg DAILY SC 01/26/25 10:00 01/28/25 11:33 40 MG Nitroglycerin 0.4 mg Q5MINP PRN SL 01/25/25 22:45 Morphine Sulfate 2 mg Q30M PRN IV 01/25/25 22:45 Acetaminophen 650 mg Q6HP PRN SD 01/25/25 22:45 Amino Acids 0 ml @ 0 mls/hr PER PHARMACY IV 01/26/25 11:30 Diagnostic Test (Pha) 1 strip Q6HR 01/26/25 12:00 01/28/25 12:13 1 STRIP Dextrose 50 ml UD PRN IV 01/26/25 11:30 Insulin Human Regular FOLLOW SLIDING SCALE Q6HR SC 01/27/25 00:00 01/27/25 06:02 2 UNITS Amino Acids/ Electrolytes/ Dextrose 1,000 ml @ 41 mls/hr DAILY@2200 IV 01/26/25 22:00 01/28/25 01:06 41 MLS/HR Enteral Nutritional Formula 240 ml Q6HR PO 01/28/25 06:00 01/28/25 12:13 240 ML Pantoprazole Sodium 40 mg BID IV 01/27/25 22:00 Vancomycin HCl 0 ml @ 0 mls/hr PER PHARMACY IV 01/28/25 16:45 UNV Piperacillin Sod/ Tazobactam Sod 100 ml @ 25 mls/hr Q6HR IV 01/28/25 18:00 UNV Laboratory Results Laboratory Tests 01/28/25 07:25 01/28/25 09:11 Chemistry Test 01/28/25 09:11 Calcium Level 10.2 mg/dL (8.7-10.4) Magnesium Level 1.6 mg/dL (1.6-2.6) Phosphorus Level 2.3 mg/dL (2.4-5.1) L Coagulation Test 01/28/25 07:25 Prothrombin Time 11.9 sec (9.3-11.8) H Prothrombin Time INR 1.14 (0.9-1.15) Activated Partial Thromboplast Time 23.2 SEC (24.5-34.5) L Urinalysis Test 01/25/25 20:55 Urine Color Yellow (Yellow) Urine Clarity Turbid (Clear) H Urine pH 6.0 (5.0-9.0) Urine Specific [place] 1.030 (1.001-1.035) Urine Protein 1+ (Negative) H Urine Ketones 1+ (Negative) H Urine Blood Negative /uL (Negative) Urine Nitrite 2+ (Negative) H Urine Bilirubin Negative (Negative) Urine Urobilinogen Normal mg/dL (Negative) Urine Leukocyte Esterase Trace /uL (Negative) Urine RBC None seen /hpf (0 - 3) Urine Microscopic WBC 3 /HPF (0-3) Urine Squamous Epithelial Cells Few /hpf (<5) Urine Calcium Oxalate Crystals Mod (None Seen) Urine Bacteria Many /hpf (None Seen) H Urine Mucus Few (None Seen) Urine Glucose Normal mg/dL (Normal) Assessment/Plan Assessment/Plan 69-year-old male with a known history of chronic bed-bound status, history of CVA, status post PEG tube placement, dementia anxiety and depression disorder presented to the hospital with a dislodgement of G-tube 1. Malfunctioning G-tube, currently in OR for replacement 2. Chronic bed-bound status 3. History of COPD 4. Chronic respiratory failure on home O2 5. History of CVA 6. Alzheimer dementia 7. Anxiety and depression disorder 8. Leukocytosis rule out sepsis -draw blood cultures, start broad-spectrum IV antibiotics, infectious disease consultation. -follow up General surgery for G-tube placement, wound care discussed with the bedside RN. Plan discussed with: Patient My Orders Orders - VERNON GENAO MD Procedure Category Date Status Time Apply Z-Guard VALENTIN 01/27/25 In Process 12:30 * Dietary Consult CONS 01/27/25 Transmitted 18:46 * Wound Consult CONS 01/27/25 Transmitted Communication Order ORDERS 01/28/25 Transmitted 14:11 * Dietary Consult CONS 01/28/25 Transmitted 14:11 Blood Culture LYNN 01/28/25 Logged 15:46 Vancomycin Per PHA 01/28/25 Logged Pharmacy 16:45 Piperacillin-Tazob PHA 01/28/25 Logged 3.375gm (Zosyn 3.375g 18:00 * Infectious [place]- CONS 01/28/25 Transmitted [facility] 16:33 Ct Ab Pel Wo Con-No CT 01/28/25 Logged Oral Or Iv 16:35 Date of Service: Jan 28, 2025 Billing Provider: VERNON GENAO MD Common Visit Codes: NOT BILLABLE VERNON GENAO MD Jan 28, 2025 16:39
[2025-01-28] MEDS ORDERED: VANCOMYCIN PER PHARMACY 0 MG IV SCH (16:45)
[2025-01-28] MEDS: VANCOMYCIN 1.25GM/250ML 250 ML IV ONE (18:16)
--- NOTE | 2025-01-28 18:37 | DVH ---
EXAM: CT CT AB PEL WO CON-NO ORAL OR IV INDICATION: Elevated leukocytosis with a recent G-tube placement TECHNIQUE: Volumetric multidetector CT images of the abdomen and pelvis were obtained without contrast. All CT scans at this facility use dose modulation, iterative reconstruction, and/or weight based dosing when appropriate to reduce radiation dose to as low as reasonably achievable. COMPARISON: None FINDINGS: [LOWER CHEST]: Large consolidation of the left lower lobe and to a lesser extent trace likely interstitial markings in the right posterior basilar segment. [LIVER]: Normal hepatic size without suspicious focal lesion. [GALLBLADDER AND BILIARY TREE]: Surgically absent. [SPLEEN]: Unremarkable. [PANCREAS]: Unremarkable. [ADRENAL GLANDS]: Right adrenalectomy [KIDNEYS]: Right nephrectomy. No hydronephrosis. No nephroureterolithiasis. [BLADDER]: Unremarkable for the degree distention. [REPRODUCTIVE ORGANS]: Unremarkable. [BOWEL/MESENTERY]: Gastrostomy tube seferino significant stool burden of the level of the rectum with possible minimal rectal wall thickening and distention up to 7.7 x 8.5 cm. Correlate for stercoral colitis and constipation. mild stool burden. [ASCITES]: Absent [LYMPHADENOPATHY]: Limited evaluation [VASCULATURE]: No aneurysmal dilatation. vascular calcifications. [ABDOMINAL WALL]: Appearance of cachexia [MUSCULOSKELETAL]: No acute fracture or aggressive focal osseous lesion. Multifocal degenerative change of the visualized spine. IMPRESSION: 1. Significant stool burden of the level of the rectum with possible minimal rectal wall thickening and distention. 2. Correlate for stercoral colitis and constipation. 3. Large consolidation of the left lower lobe and to a lesser extent trace likely interstitial markings in the right posterior basilar segment.
--- NOTE | 2025-01-28 19:53 | DVHPN2 ---
Progress Note - Dictate Date Seen: Jan 28, 2025 Medical Necessity Reason Pt with a Central, PICC or Fol: No Subjective No new complaints, patient is awake and alert G-tube site is clean Patient has persistent worsening leukocytosis CT abdomen was ordered today because of persistent leukocytosis CT abdomen shows a left lower lobe pneumonia or consolidation vital signs Vital Sign Date Time Temp Pulse Resp B/P (MAP) Pulse Ox O2 Delivery O2 Flow Rate FiO2 01/28/25 17:46 98.1 89 18 116/64 (81) 97 98.1 01/28/25 08:00 Nasal Cannula* 2 28 Total Intake and Output 01/27/25 01/27/25 01/28/25 15:00 23:00 07:00 Intake Total 10 ml 0 ml 0 ml Balance 10 ml 0 ml 0 ml medications Current Medications Medications Dose Ordered Sig/Tobias Route Start Time Stop Time Status Last Admin Dose Admin Dextrose/Sodium Chloride 1,000 ml @ 75 mls/hr [id number] IV 01/25/25 22:45 01/28/25 17:36 75 MLS/HR Ondansetron HCl 4 mg Q4HP PRN IV 01/25/25 22:45 Enoxaparin Sodium 40 mg DAILY SC 01/26/25 10:00 01/28/25 11:33 40 MG Nitroglycerin 0.4 mg Q5MINP PRN SL 01/25/25 22:45 Morphine Sulfate 2 mg Q30M PRN IV 01/25/25 22:45 Acetaminophen 650 mg Q6HP PRN NE 01/25/25 22:45 Amino Acids 0 ml @ 0 mls/hr PER PHARMACY IV 01/26/25 11:30 Diagnostic Test (Pha) 1 strip Q6HR 01/26/25 12:00 01/28/25 17:36 1 STRIP Dextrose 50 ml UD PRN IV 01/26/25 11:30 Insulin Human Regular FOLLOW SLIDING SCALE Q6HR SC 01/27/25 00:00 01/27/25 06:02 2 UNITS Amino Acids/ Electrolytes/ Dextrose 1,000 ml @ 41 mls/hr DAILY@2200 IV 01/26/25 22:00 01/28/25 01:06 41 MLS/HR Enteral Nutritional Formula 240 ml Q6HR PO 01/28/25 06:00 01/28/25 17:36 240 ML Pantoprazole Sodium 40 mg BID IV 01/27/25 22:00 Vancomycin HCl 0 ml @ 0 mls/hr PER PHARMACY IV 01/28/25 16:45 Piperacillin Sod/ Tazobactam Sod 100 ml @ 25 mls/hr Q8HR IV 01/28/25 22:00 Vancomycin HCl 100 ml @ 200 mls/hr Q12H IV 01/29/25 06:00 objective General: Cachectic-appearing, afebrile, palor, mucosae are moist Cardiovascular: Regular S1 and S2. No murmurs, gallops or rubs. No JVD elevation. No pedal edema Respiratory: Normal B/L air entry on room air. Clear lung sounds on auscultation Abdomen: Soft, nontender, nondistended, normoactive bowel sounds, no rebound tenderness, dislodged G-tube, foramen appears to be closed at this time. Genitourinary: Deferred Psych/Mental Status: A/Ox2 laboratory and microbiology Laboratory Tests 01/28/25 09:11 01/28/25 07:25 Test 01/28/25 09:11 Range/Units Serum Glucose 101 74-106 mg/dL CT SCAN ABD PELVIS IMPRESSION: 1. Significant stool burden of the level of the rectum with possible minimal rectal wall thickening and distention. 2. Correlate for stercoral colitis and constipation. 3. Large consolidation of the left lower lobe and to a lesser extent trace likely interstitial markings in the right posterior basilar segment. Problems(with codes): (1) Leukocytosis (2) Complication of gastrostomy tube (3) Left lower lobe consolidation (4) Gastritis Prognosis Plan Patient is status post G-tube placement, leukocytosis trending up. This is likely due to left middle lobe consolidation and pulmonary involvement Blood cultures have been drawn and patient is started on IV antibiotics I will order MiraLax 17 g p.o. daily via PEG tube for his constipation or we can try lactulose Check for gastric residuals and if his less than 150 start G-tube feedings today Dietary Evaluation Review Comments: Nutrition Recommendation: 1) EN Jevity 1.2Cal @ 60ml/hr x 24hr (goal). Water flush 150ml Q6H if allowed, adjust PRN. TF at goal volume provides 1728 kcal (100%), 80 gm protein (100%), and 1762 ml free water(including flush). 2) Taper off Clinimx if pt tolerate TF @ 40ml/hr 3) Monitor NPO status, lab values, weight trend, and I/O Expected Outcomes/Goals: Intake to meet >75% estimated needs FU 2-3 days Plan discussed with: Other (Nurse) JEANNE ALCANTARA MD Jan 28, 2025 19:53
[2025-01-28] MEDS: POTASSIUM PHOSPHATE 22 MEQ in SODIUM CHL 0.9% 100 ML IV ONE (22:00)
[2025-01-28] MEDS ORDERED: AMINO ACID INFUSION IN D10W 1,000 ML IV SCH (22:00)
[2025-01-28] MEDS: PIPERACILLIN-TAZOB 3.375GM 100 ML IV SCH (22:00)
--- NOTE | 2025-01-28 23:26 | DVHINCON2 ---
Date of service: Jan 28, 2025 Allergies: Coded Allergies: NO KNOWN ALLERGIES (Unverified , 01/25/25) Home Meds Reported Medications Cholecalciferol (VITAMIN D3) 2,000 Unit Tab, 2000 UNIT OR DAILY, TAB 01/26/25 Divalproex Sodium (Depakote) 500 Mg Tab, 500 MG PO DAILY, TAB 01/26/25 Aspirin (Aspir-81) 81 Mg Tab, 1 TAB PO DAILY, #90 TAB 1 Refill 01/26/25 Current Medications Current Medications Medications (Trade) Dose Ordered Sig/Tobias Route PRN Reason Start Time Stop Time Status Last Admin Enteral Nutritional Formula (Ensure Clear) 240 ml Q6HR PO 01/28/25 06:00 01/28/25 17:36 Vancomycin HCl 0 ml @ 0 mls/hr PER PHARMACY IV 01/28/25 16:45 Piperacillin Sod/ Tazobactam Sod 100 ml @ 25 mls/hr Q8HR IV 01/28/25 22:00 Vancomycin HCl 250 ml @ 250 mls/hr Q12H IV 01/29/25 06:00 01/28/25 18:12 DC Vancomycin HCl 100 ml @ 200 mls/hr Q12H IV 01/29/25 06:00 Amino Acids/ Electrolytes/ Dextrose 1,000 ml @ 41 mls/hr DAILY@2200 IV 01/28/25 22:00 01/28/25 18:21 DC Vital Signs Vital Signs Date Time Temp Pulse Resp B/P (MAP) Pulse Ox O2 Delivery O2 Flow Rate FiO2 01/28/25 21:00 97.8 95 17 116/76 (89) 98 97.8 01/28/25 10:00 Room Air* 0 21 Labs/Diagnostic Data Labs Test 01/28/25 18:08 01/28/25 09:11 01/28/25 07:25 01/27/25 10:10 Range/Units POC Glucose 88 70-106 mg/dl Sodium Level 137 136-145 mmol/L Potassium Level 3.9 3.5-5.1 mmol/L Chloride Level 99 98-107 mmol/L Carbon Dioxide Level 27 20-31 mmol/L Anion Gap 11 5-15 Blood Urea Nitrogen 17 9-23 mg/dL Creatinine 0.65 L 0.700-1.30 mg/dL Glomerular Filtration Rate Calc 102 >90 mL/min BUN/Creatinine Ratio 26.2 H 10.0-20.0 Serum Glucose 101 74-106 mg/dL Calcium Level 10.2 8.7-10.4 mg/dL Phosphorus Level 2.3 L 2.4-5.1 mg/dL Magnesium Level 1.6 1.6-2.6 mg/dL White Blood Count 28.9 H 4.4-10.8 10^3/uL Red Blood Count 4.22 L 4.5-5.90 10^6/uL Hemoglobin 12.8 L 13.5-17.5 g/dL Hematocrit 39.2 #L 41.0-53.0 % Mean Corpuscular Volume 92.9 # 80.0-100.0 fL Mean Corpuscular Hemoglobin 30.3 28.0-32.0 pg Mean Corpuscular Hemoglobin Concent 32.6 32.0-36.0 g/dL Red Cell Distribution Width 13.6 11.8-14.3 % Platelet Count 300 140-450 10^3/uL Mean Platelet Volume 7.6 6.9-10.8 fL Neutrophils (%) (Auto) 37.0-80.0 % Lymphocytes (%) (Auto) 10.0-50.0 % Monocytes (%) (Auto) 0.0-12.0 % Basophils (%) (Auto) 0.0-2.0 % Neutrophils # (Auto) 1.6-8.6 10 ^3/uL Lymphocytes # (Auto) 0.4-5.4 10 ^3/uL Monocytes # (Auto) 0-1.3 10 ^3/uL Differential Total Cells Counted 100.0 100 Neutrophils % (Manual) 83 H 37.0-80.0 Band Neutrophils % (Manual) 3 Lymphocytes % (Manual) 4 L 10.0-50.0 Monocytes % (Manual) 10 0-12 Eosinophils % (Manual) 0 0-7 Basophils % (Manual) 0 0.0-2.0 Metamyelocytes % (manual) 0 Myelocytes % (Manual) 0 Promyelocytes % (Manual) 0 Blast Cells % (Manual) 0 Reactive Lymphocytes 0 Platelet Estimate Adequate Prothrombin Time 11.9 H 9.3-11.8 sec Prothrombin Time INR 1.14 0.9-1.15 Activated Partial Thromboplast Time 23.2 L 24.5-34.5 SEC Total Bilirubin 0.7 0.2-1.0 mg/dL Aspartate Amino Transferase (AST) 16 13-40 U/L Alanine Aminotransferase (ALT) < 9 7-40 U/L Alkaline Phosphatase 106 46-116 U/L Total Protein 6.9 5.7-8.2 g/dL Albumin 3.7 3.2-4.8 g/dL Triglycerides Level 42 < 150 mg/dL Test 01/26/25 07:32 01/25/25 20:55 Range/Units Eosinophils (%) (Auto) 0.2 0.0-7.0 % Eosinophils # (Auto) 0 0-0.8 10 ^3/uL Basophils # (Auto) 0.1 0-0.2 10 ^3/uL Nucleated Red Blood Cells 0.0 % Direct Bilirubin 0.2 <0.3 mg/dL Urine Color Yellow Yellow Urine Clarity Turbid H Clear Urine pH 6.0 5.0-9.0 Urine Specific [place] 1.030 1.001-1.035 Urine Protein 1+ H Negative Urine Ketones 1+ H Negative Urine Blood Negative Negative /uL Urine Nitrite 2+ H Negative Urine Bilirubin Negative Negative Urine Urobilinogen Normal Negative mg/dL Urine Leukocyte Esterase Trace Negative /uL Urine RBC None seen 0 - 3 /hpf Urine Microscopic WBC 3 0-3 /HPF Urine Squamous Epithelial Cells Few <5 /hpf Urine Calcium Oxalate Crystals Mod None Seen Urine Bacteria Many H None Seen /hpf Urine Mucus Few None Seen Urine Glucose Normal Normal mg/dL Problems(with codes): (1) Leukocytosis (2) Gastritis (3) Left lower lobe consolidation (4) Complication of gastrostomy tube Plan/Recommendation ASSESSMENT AND PLAN: ID Problem List: \-- G-tube dislodgement s/p endoscopic replacement (01/27) \-- Leukocytosis (WBC up to 28.828.9) without documented fever \-- Suspected aspiration related to periprocedural endoscopy \-- Possible pneumonia (LLL consolidation on CT) \-- Constipation with significant rectal stool burden; possible colitis \-- Hypoxia on admission (now on 2 L NC) \-- Tachycardia (up to 105 bpm at times) \-- COPD (oxygen independence per transcript) \-- Dementia; depression; anxiety \-- Prior stroke \-- Chronic dysphagia with G-tube dependence \-- Poor oral/enteral intake prior to presentation; no bowel movements prior to admission, now with multiple BMs in last 24 hours Assessment This is a 69 y.o. male with a past medical history of COPD (oxygen independence per transcript), dementia, depression, anxiety, stroke, and chronic dysphagia with a history of G-tube placement, who presents after G-tube dislodgement with decreased feeds and constipation. G-tube was successfully replaced endoscopically on 01/[address] Gonzalez. Since 12/27 per transcript, patient has had persistent leukocytosis (peak WBC 28.828.9) without fevers; tachycardic at times (to 105). Hypoxia on admission (SpO2 94% RA), improved on 2 L NC (now 100%). Chest X-ray without acute intrathoracic process; CT noted significant rectal stool burden with possible rectal wall thickening/distension (possible stercoral colitis/constipation) and a large consolidation in the left lower lobe (LLL), with trace interstitial markings in the right posterior basilar segment. Clinical picture raises concern for aspiration related to the periprocedural endoscopy with possible superimposed pneumonia; colitis also on the differential. Multiple bowel movements over the last 24 hours may improve the inflammatory picture. Plan: -- check MRSA nares \-- Stop vancomycin now (no ongoing need identified). \-- Continue piperacillintazobactam (Zosyn) empirically to cover Pseudomonas and anaerobes for possible pneumonia and possible colitis. \-- Blood cultures have been ordered; follow up and narrow/stop antibiotics based on clinical course and culture results. \-- Do not anticipate antibiotics on discharge if clinical course improves; finalize plan pending trajectory and microbiology. \-- Continue bronchodilators and supplemental O2 as needed to maintain adequate oxygen saturation. \-- Supportive care for constipation/colitis per primary team; note that patient has had multiple bowel movements in the last 24 hours. \-- No steroid therapy currently (per transcript). Isolation Precautions: standard \*Plan is subject to change pending incorporation of new incoming information/diagnostics. Updates may be added as addendum at the bottom (OR TOP) of this note. Thank you for the consult. ID will continue to follow. Please contact Infectious Disease for any questions or concerns. Radha Wheeler M.D. [facility] Ph: ? \ History: The patient's chart and medications were reviewed in detail and the patient was seen and examined. History obtained from: patient (noted to be a poor historian) and chart; in the care of his sister. Bayron Martinez is a 69 y.o. male with COPD (oxygen independence per transcript), dementia, depression, anxiety, stroke, and chronic dysphagia with prior G-tube placement. His G-tube became dislodged two nights prior to presentation, associated with decreased feeds and no bowel movements; denies abdominal pain, nausea, vomiting, or fevers. On admission, hypoxia noted (SpO2 94% on room air) and tachycardia (to 105). Chest X-ray showed no acute intrathoracic process. CT demonstrated significant stool burden at the rectum with possible minimal rectal wall thickening/distension (possible stercoral colitis/constipation) and a large LLL consolidation with trace right posterior basilar interstitial markings. Dr. Gonzalez replaced the G-tube endoscopically on 01/27; patient tolerated the procedure well. Since 12/27 per transcript, WBC has been elevated to 28.828.9 without fevers. Empiric vancomycin and piperacillintazobactam (Zosyn) were started on 12/28; recommendation today to discontinue vancomycin and continue Zosyn. Blood cultures are pending. Review of Systems: -Constitutional: Denies fevers (per transcript). -Respiratory: Hypoxia on admission; now on 2 L NC. Other respiratory symptoms not discussed. -Cardiovascular: Not discussed. -Gastrointestinal: No bowel movements prior to admission; now multiple bowel movements in last 24 hours. Denies abdominal pain, nausea, vomiting. CT with significant rectal stool burden and possible rectal wall thickening/distension (possible colitis). -Genitourinary: Not discussed. -Neurological: Not discussed. -Musculoskeletal: Not discussed. -Skin: Mild irritation at G-tube site (per transcript). -Psychiatric: History of depression and anxiety; current symptoms not discussed. -Endocrine/Heme/Allergy: Not discussed. Past Medical History: -COPD (oxygen independence per transcript) -Dementia -Depression -Anxiety -Stroke -Chronic dysphagia -History of G-tube placement Past Surgical History: -G-tube placement (date not provided); endoscopic G-tube replacement performed 01/27 (per transcript) Home Medications: -Not provided in transcript. -Ambiguous medication mentioned: Mr. Parish in my end too (unable to clarify from transcript). Allergies: -Not provided in transcript. Family History: -Not provided in transcript. Social History: -In the care of his sister (per transcript). -Additional social history not provided. Objective: Vital Signs on Arrival: -SpO2: 94% on room air (per transcript) -Heart rate: Tachycardic up to 105 bpm at times -Other arrival vitals: Not provided in transcript. Most Recent Vital Signs: -SpO2: 100% on 2 L/min via nasal cannula -Blood pressure: 14/83 as stated in transcript (exact values unclear) -Heart rate: Tachycardic up to 105 bpm at times -Temperature and respiratory rate: Not provided in transcript. Admission Weight: -Not provided in transcript. BMI not available. Physical Exam: General: NAD Neck: Supple. No masses. HEENT: PERRL. Normal lids and conjunctiva. Moist mucous membranes. Oropharynx without lesions, exudates or excessive erythema. Normal appearance of the external aspects of the nose and ears. Heart: Regular rhythm, normal rate. No murmur. No lower extremity edema. Lungs: Normal respiratory effort. Clear to auscultation bilaterally. No wheezes. No crackles. Abdomen: Soft. Non-tender. Non-distended. No masses or abdominal hernia. Abdomen noted to be concave. G-tube present; ring was externalized prior to replacement; mild peristomal irritation. Msk: No digital cyanosis. Normal strength and tone in all 4 limbs Skin: Warm and dry, no rashes. Mild irritation at G-tube site. Neuro: Alert. No facial droop or slurred speech. Extra-ocular movements intact. Sensation intact to soft touch in all 4 limbs. Psych: Appropriate mood. Full affect. Oriented to person, place, time, and situation. Lines: -Gastrostomy tube present; replaced endoscopically on 01/27 (per transcript). -Other lines: Not provided in transcript. Diagnostic Studies: Available diagnostic studies were reviewed personally. Significant relevant results and findings are outlined below or addressed in the Assessment and Plan above. -Laboratory data (per transcript): -WBC: Elevated up to 28.828.9 (since 12/27 per transcript) -Hemoglobin: 14.9 g/dL -Platelet count: 490 x10^3/L -Creatinine: 0.82 mg/dL -BUN: 16 mg/dL -Sodium: 140 mEq/L -Chloride: 101 mEq/L -Microbiology: -Blood cultures ordered; results pending (per transcript). -Therapeutics: -Empiric vancomycin and piperacillintazobactam (Zosyn) started 12/28; recommendation to stop vancomycin and continue Zosyn (per transcript). -Bronchodilators initiated; oxygen via nasal cannula 2 L/min. Pertinent Imaging: -Chest X-ray: -No acute intrathoracic process (per transcript). -CT (study type not specified in transcript): -Significant stool burden at the level of the rectum with possible minimal rectal wall thickening and distension; concerning for possible stercoral colitis/constipation. -Large consolidation in the left lower lobe; trace interstitial markings in the right posterior basilar segment. Plan discussed with: Patient RADHA WHEELER MD Jan 28, 2025 23:26
[2025-01-29 01:00] VITALS: BP 127/78; PULSE 79; RESP 18; TEMP 98; O2SAT 99
[2025-01-29 05:00] VITALS: BP 141/87; PULSE 71; RESP 18; TEMP 97.7; O2SAT 98
[2025-01-29] MEDS ORDERED: VANCOMYCIN 1GM/250ML KIT 250 ML IV SCH (06:00)
[2025-01-29] MEDS: VANCOMYCIN 500mg/100mL 100 ML IV ONE (06:06)
[2025-01-29] MEDS: PIPERACILLIN-TAZOB 3.375GM 100 ML IV ONE (06:06)
[2025-01-29] MEDS: VANCOMYCIN 500mg/100mL 100 ML IV SCH (06:15)
[2025-01-29 07:02] LABS: Hematocrit 36.2 % (41.0-53.0); Hemoglobin 11.8 g/dL (13.5-17.5); Mean Corpuscular Hemoglobin 31.2 pg (28.0-32.0); Mean Corpuscular Volume 95.9 fL (80.0-100.0); Nucleated Red Blood Cells % 0.0 %
[2025-01-29 07:10] LABS: Alkaline Phosphatase 95 U/L (46-116); Anion Gap 5 (5-15); BUN/Creatinine Ratio 14.0 (10.0-20.0); Blood Urea Nitrogen 12 mg/dL (9-23); Calcium 8.7 mg/dL (8.7-10.4); Carbon Dioxide 24 mmol/L (20-31); Potassium 3.5 mmol/L (3.5-5.1); Total Protein 6.1 g/dL (5.7-8.2)
[2025-01-29 07:11] LABS: Bilirubin, Total 0.5 mg/dL (0.2-1.0)
[2025-01-29 07:16] LABS: Alanine Aminotransferase 9 U/L (7-40); Albumin 3.1 g/dL (3.2-4.8); Chloride 91 mmol/L (98-107); Magnesium 1.5 mg/dL (1.6-2.6); Sodium 120 mmol/L (136-145)
[2025-01-29 07:30] LABS: Glucose 850 mg/dL (74-106)
[2025-01-29 08:00] VITALS: PULSE 79
[2025-01-29 09:06] VITALS: BP 140/78; PULSE 74; RESP 18; TEMP 97.6; O2SAT 99
--- NOTE | 2025-01-29 13:15 | DVHPN2 ---
Consult Progress Note Date Seen: Jan 29, 2025 Subjective Patient reports: Feels better (remains wo hypoxia on 2lNC, no cough, gtube in place) Objective vital signs Vital Sign Date Time Temp Pulse Resp B/P (MAP) Pulse Ox O2 Delivery O2 Flow Rate FiO2 01/29/25 10:00 Nasal Cannula* 2 28 01/29/25 09:06 97.6 74 18 140/78 (98) 99 97.6 Total Intake and Output 01/28/25 01/28/25 01/29/25 15:00 23:00 07:00 Intake Total 0 ml Balance 0 ml medications Current Medications Medications Dose Ordered Sig/Tobias Route Start Time Stop Time Status Last Admin Dose Admin Dextrose/Sodium Chloride 1,000 ml @ 75 mls/hr [id number] IV 01/25/25 22:45 01/28/25 17:36 75 MLS/HR Ondansetron HCl 4 mg Q4HP PRN IV 01/25/25 22:45 Enoxaparin Sodium 40 mg DAILY SC 01/26/25 10:00 01/29/25 09:26 40 MG Nitroglycerin 0.4 mg Q5MINP PRN SL 01/25/25 22:45 Morphine Sulfate 2 mg Q30M PRN IV 01/25/25 22:45 Acetaminophen 650 mg Q6HP PRN OK 01/25/25 22:45 Amino Acids 0 ml @ 0 mls/hr PER PHARMACY IV 01/26/25 11:30 Diagnostic Test (Pha) 1 strip Q6HR 01/26/25 12:00 01/29/25 12:26 1 STRIP Dextrose 50 ml UD PRN IV 01/26/25 11:30 Insulin Human Regular FOLLOW SLIDING SCALE Q6HR SC 01/27/25 00:00 01/27/25 06:02 2 UNITS Amino Acids/ Electrolytes/ Dextrose 1,000 ml @ 41 mls/hr DAILY@2200 IV 01/26/25 22:00 01/28/25 22:03 41 MLS/HR Enteral Nutritional Formula 240 ml Q6HR PO 01/28/25 06:00 01/28/25 17:36 240 ML Pantoprazole Sodium 40 mg BID IV 01/27/25 22:00 01/29/25 09:25 40 MG Vancomycin HCl 0 ml @ 0 mls/hr PER PHARMACY IV 11/22/25 16:45 Piperacillin Sod/ Tazobactam Sod 100 ml @ 25 mls/hr Q8HR IV 01/28/25 22:00 01/29/25 06:16 25 MLS/HR Vancomycin HCl 100 ml @ 200 mls/hr Q12H IV 01/29/25 06:00 01/29/25 06:15 200 MLS/HR laboratory and microbiology Laboratory Tests 01/29/25 05:25 Test 01/29/25 05:25 Range/Units Serum Glucose 850 #*H 74-106 mg/dL Problem List/Assessment/Plan Problem List/Assessment/Plan ASSESSMENT AND PLAN: ID Problem List: \-- G-tube dislodgement s/p endoscopic replacement (01/27) \-- Leukocytosis (WBC up to 28.828.9) without documented fever \-- Suspected aspiration related to periprocedural endoscopy \-- Possible pneumonia (LLL consolidation on CT) \-- Constipation with significant rectal stool burden; possible colitis \-- Hypoxia on admission (now on 2 L NC) \-- Tachycardia (up to 105 bpm at times) \-- COPD (oxygen independence per transcript) \-- Dementia; depression; anxiety \-- Prior stroke \-- Chronic dysphagia with G-tube dependence \-- Poor oral/enteral intake prior to presentation; no bowel movements prior to admission, now with multiple BMs in last 24 hours Assessment This is a 69 y.o. male with a past medical history of COPD (oxygen independence per transcript), dementia, depression, anxiety, stroke, and chronic dysphagia with a history of G-tube placement, who presents after G-tube dislodgement with decreased feeds and constipation. G-tube was successfully replaced endoscopically on 01/[address] Gonzalez. Since 12/27 per transcript, patient has had persistent leukocytosis (peak WBC 28.828.9) without fevers; tachycardic at times (to 105). Hypoxia on admission (SpO2 94% RA), improved on 2 L NC (now 100%). Chest X-ray without acute intrathoracic process; CT noted significant rectal stool burden with possible rectal wall thickening/distension (possible stercoral colitis/constipation) and a large consolidation in the left lower lobe (LLL), with trace interstitial markings in the right posterior basilar segment. Clinical picture raises concern for aspiration related to the periprocedural endoscopy with possible superimposed pneumonia; colitis also on the differential. Multiple bowel movements over the last 24 hours may improve the inflammatory picture. 02/28: having multiple BMS Plan: \-- will fu on mrsa nares \-- Continue piperacillintazobactam (Zosyn) empirically to cover Pseudomonas and anaerobes for possible pneumonia and possible colitis. \-- Blood cultures have been ordered; follow up and narrow/stop antibiotics based on clinical course and culture results. \-- Do not anticipate antibiotics on discharge if clinical course improves; finalize plan pending trajectory and microbiology. \-- Continue bronchodilators and supplemental O2 as needed to maintain adequate oxygen saturation. \-- Supportive care for constipation/colitis per primary team; note that patient has had multiple bowel movements in the last 24 hours. Isolation Precautions: standard \*Plan is subject to change pending incorporation of new incoming information/diagnostics. Updates may be added as addendum at the bottom (OR TOP) of this note. Thank you for the consult. ID will continue to follow. Please contact Infectious Disease for any questions or concerns. Radha Wheeler M.D. [facility] Ph: ? Teams text: Electronically signed by: Radha Wheeler MD, 01/29/2025 \ Physical Exam: General: NAD Neck: Supple. No masses. HEENT: PERRL. Normal lids and conjunctiva. Moist mucous membranes. Oropharynx without lesions, exudates or excessive erythema. Normal appearance of the external aspects of the nose and ears. Heart: Regular rhythm, normal rate. No murmur. No lower extremity edema. Lungs: Normal respiratory effort. Clear to auscultation bilaterally. No wheezes. No crackles. Abdomen: Soft. Non-tender. Non-distended. No masses or abdominal hernia. Abdomen noted to be concave. G-tube present cdi Msk: No digital cyanosis. Normal strength and tone in all 4 limbs Skin: Warm and dry, no rashes. Neuro: Alert. No facial droop or slurred speech. Extra-ocular movements intact. Sensation intact to soft touch in all 4 limbs. Psych: Appropriate mood. Full affect. Oriented to person, place, time, and situation. Plan discussed with: Patient Dietary Evaluation Review Comments: Nutrition Recommendation: 1) EN Jevity 1.2Cal @ 60ml/hr x 24hr (goal). Water flush 150ml Q6H if allowed, adjust PRN. TF at goal volume provides 1728 kcal (100%), 80 gm protein (100%), and 1762 ml free water(including flush). 2) Taper off Clinimx if pt tolerate TF @ 40ml/hr 3) Monitor NPO status, lab values, weight trend, and I/O Expected Outcomes/Goals: Intake to meet >75% estimated needs FU 2-3 days RADHA WHEELER MD Jan 29, 2025 13:15
[2025-01-29 15:44] LABS: Alanine Aminotransferase 14 U/L (7-40); Albumin 3.6 g/dL (3.2-4.8); Alkaline Phosphatase 105 U/L (46-116); Anion Gap 10 (5-15); BUN/Creatinine Ratio 21.0 (10.0-20.0); Blood Urea Nitrogen 13 mg/dL (9-23); Calcium 10.2 mg/dL (8.7-10.4); Carbon Dioxide 30 mmol/L (20-31); Chloride 98 mmol/L (98-107); Glucose 100 mg/dL (74-106); Magnesium 1.7 mg/dL (1.6-2.6); Potassium 4.7 mmol/L (3.5-5.1); Sodium 138 mmol/L (136-145); Total Protein 6.6 g/dL (5.7-8.2)
[2025-01-29 15:45] LABS: Bilirubin, Total 0.5 mg/dL (0.2-1.0)
--- NOTE | 2025-01-29 15:59 | DVHPN2 ---
Subjective Patient is status post G-tube placement, leukocytosis trending up. We will draw blood cultures and start empirical IV antibiotics can we will get Infectious Disease involved. Changes from previous H/P or p: No Changes Eyes: No Pain, No Vision change, No Conjunctivae inflammation, No Eyelid inflammation, No Other, No Redness ENT: No Ear pain, No Ear discharge, No Nose pain, No Nose discharge, No Nose congestion, No Mouth pain, No Mouth swelling, No Throat pain, No Throat swelling, No Other Cardiovascular: No Chest Pain, No Palpitations, No Orthopnea, No Paroxysmal Noc. Dyspnea, No Edema, No Lt Headedness, No Other Respiratory: No Cough, No Dry, No Shortness of breath, No SOB with excertion, No Wheezing, No Hemoptysis, No Pleuritic Pain, No Sputum, No Other Gastrointestinal: No Nausea, No Vomiting, No Abdominal Pain, No Diarrhea, No Constipation, No Melena, No Hematochezia; Other (Dislodged G-tube) Genitourinary: No Dysuria, No Frequency, No Incontinence, No Hematuria, No Retention, No Other Musculoskeletal: No other, No neck pain, No shoulder pain, No arm pain, No back pain, No hand pain, No leg pain, No foot pain Skin: No Rash, No Lesions, No Jaundice, No Bruising, No Other Objective Vitals Vital Signs Date Time Temp Pulse Resp B/P (MAP) Pulse Ox O2 Delivery O2 Flow Rate FiO2 01/29/25 10:00 Nasal Cannula* 2 28 01/29/25 09:06 97.6 74 18 140/78 (98) 99 97.6 Intake/Output Intake and Output 01/29/25 07:00 Intake Total 0 ml Balance 0 ml Intake Oral 0 ml # Voids 8 # Bowel Movements 2 Medications Current Medications Medications Dose Ordered Sig/Tobias Route Start Time Stop Time Status Last Admin Dose Admin Dextrose/Sodium Chloride 1,000 ml @ 75 mls/hr [id number] IV 01/25/25 22:45 01/29/25 14:17 75 MLS/HR Ondansetron HCl 4 mg Q4HP PRN IV 01/25/25 22:45 Enoxaparin Sodium 40 mg DAILY SC 01/26/25 10:00 01/29/25 09:26 40 MG Nitroglycerin 0.4 mg Q5MINP PRN SL 01/25/25 22:45 Morphine Sulfate 2 mg Q30M PRN IV 01/25/25 22:45 Acetaminophen 650 mg Q6HP PRN LA 01/25/25 22:45 Amino Acids 0 ml @ 0 mls/hr PER PHARMACY IV 01/26/25 11:30 Diagnostic Test (Pha) 1 strip Q6HR 01/26/25 12:00 01/29/25 12:26 1 STRIP Dextrose 50 ml UD PRN IV 01/26/25 11:30 Insulin Human Regular FOLLOW SLIDING SCALE Q6HR SC 01/27/25 00:00 01/27/25 06:02 2 UNITS Amino Acids/ Electrolytes/ Dextrose 1,000 ml @ 41 mls/hr DAILY@2200 IV 01/26/25 22:00 01/28/25 22:03 41 MLS/HR Enteral Nutritional Formula 240 ml Q6HR PO 01/28/25 06:00 01/28/25 17:36 240 ML Pantoprazole Sodium 40 mg BID IV 01/27/25 22:00 01/29/25 09:25 40 MG Vancomycin HCl 0 ml @ 0 mls/hr PER PHARMACY IV 01/28/25 16:45 Cancel Piperacillin Sod/ Tazobactam Sod 100 ml @ 25 mls/hr Q8HR IV 01/28/25 22:00 01/29/25 14:04 25 MLS/HR Laboratory Results Laboratory Tests 01/29/25 05:25 01/29/25 15:11 Chemistry Test 01/29/25 05:25 01/29/25 15:11 Albumin 3.1 g/dL (3.2-4.8) L 3.6 g/dL (3.2-4.8) Calcium Level 8.7 mg/dL (8.7-10.4) 10.2 mg/dL (8.7-10.4) Magnesium Level 1.5 mg/dL (1.6-2.6) L 1.7 mg/dL (1.6-2.6) Phosphorus Level 2.7 mg/dL (2.4-5.1) 3.1 mg/dL (2.4-5.1) Total Protein 6.1 g/dL (5.7-8.2) 6.6 g/dL (5.7-8.2) LFT Test 01/29/25 05:25 01/29/25 15:11 Alanine Aminotransferase (ALT) 9 U/L (7-40) 14 U/L (7-40) Alkaline Phosphatase 95 U/L (46-116) 105 U/L (46-116) Aspartate Amino Transferase (AST) 21 U/L (13-40) 22 U/L (13-40) Total Bilirubin 0.5 mg/dL (0.2-1.0) 0.5 mg/dL (0.2-1.0) Urinalysis Test 01/25/25 20:55 Urine Color Yellow (Yellow) Urine Clarity Turbid (Clear) H Urine pH 6.0 (5.0-9.0) Urine Specific [place] 1.030 (1.001-1.035) Urine Protein 1+ (Negative) H Urine Ketones 1+ (Negative) H Urine Blood Negative /uL (Negative) Urine Nitrite 2+ (Negative) H Urine Bilirubin Negative (Negative) Urine Urobilinogen Normal mg/dL (Negative) Urine Leukocyte Esterase Trace /uL (Negative) Urine RBC None seen /hpf (0 - 3) Urine Microscopic WBC 3 /HPF (0-3) Urine Squamous Epithelial Cells Few /hpf (<5) Urine Calcium Oxalate Crystals Mod (None Seen) Urine Bacteria Many /hpf (None Seen) H Urine Mucus Few (None Seen) Urine Glucose Normal mg/dL (Normal) Assessment/Plan Assessment/Plan 69-year-old male with a known history of chronic bed-bound status, history of CVA, status post PEG tube placement, dementia anxiety and depression disorder presented to the hospital with a dislodgement of G-tube 1. Malfunctioning G-tube, currently in OR for replacement 2. Chronic bed-bound status 3. History of COPD 4. Chronic respiratory failure on home O2 5. History of CVA 6. Alzheimer dementia 7. Anxiety and depression disorder 8. Leukocytosis rule out sepsis 9. Left-sided consolidation likely aspiration pneumonia 10. Stercoral colitis with the constipation -draw blood cultures, start broad-spectrum IV antibiotics, infectious disease consultation. -follow up General surgery for G-tube placement, wound care discussed with the bedside RN. Plan discussed with: Patient My Orders Orders - VERNON GENAO MD Procedure Category Date Status Time Piperacillin-Tazob PHA 01/28/25 In Process 3.375gm (Zosyn 3.375g 22:00 Ct Ab Pel Wo Con-No CT 01/28/25 Resulted Oral Or Iv 16:35 Vancomycin,Trough LAB 01/30/25 Verified 05:00 Vancomycin Per VALENTIN 01/30/25 In Process Pharmacy Pro[facility] 06:00 * Infectious [facility]- CONS 01/28/25 Transmitted [facility] 19:20 Date of Service: Jan 29, 2025 Billing Provider: VERNON GENAO MD Common Visit Codes: NOT BILLABLE VERNON GENAO MD Jan 29, 2025 15:59
--- NOTE | 2025-01-29 19:55 | DVHPN2 ---
Progress Note - Dictate Date Seen: Jan 29, 2025 Medical Necessity Reason Pt with a Central, PICC or Fol: No Subjective No new complaints, patient is awake and alert G-tube site is clean Patient has improving leukocytosis CT abdomen shows a left lower lobe pneumonia or consolidation vital signs Vital Sign Date Time Temp Pulse Resp B/P (MAP) Pulse Ox O2 Delivery O2 Flow Rate FiO2 01/29/25 10:00 Nasal Cannula* 2 28 01/29/25 09:06 97.6 74 18 140/78 (98) 99 97.6 Total Intake and Output 01/28/25 01/28/25 01/29/25 15:00 23:00 07:00 Intake Total 0 ml Balance 0 ml medications Current Medications Medications Dose Ordered Sig/Tobias Route Start Time Stop Time Status Last Admin Dose Admin Dextrose/Sodium Chloride 1,000 ml @ 75 mls/hr [id number] IV 01/25/25 22:45 01/29/25 14:17 75 MLS/HR Ondansetron HCl 4 mg Q4HP PRN IV 01/25/25 22:45 Enoxaparin Sodium 40 mg DAILY SC 01/26/25 10:00 01/29/25 09:26 40 MG Nitroglycerin 0.4 mg Q5MINP PRN SL 01/25/25 22:45 Morphine Sulfate 2 mg Q30M PRN IV 01/25/25 22:45 Acetaminophen 650 mg Q6HP PRN MT 01/25/25 22:45 Amino Acids 0 ml @ 0 mls/hr PER PHARMACY IV 01/26/25 11:30 Diagnostic Test (Pha) 1 strip Q6HR 01/26/25 12:00 01/29/25 17:30 1 STRIP Dextrose 50 ml UD PRN IV 01/26/25 11:30 Insulin Human Regular FOLLOW SLIDING SCALE Q6HR SC 01/27/25 00:00 01/27/25 06:02 2 UNITS Amino Acids/ Electrolytes/ Dextrose 1,000 ml @ 41 mls/hr DAILY@2200 IV 01/26/25 22:00 01/28/25 22:03 41 MLS/HR Enteral Nutritional Formula 240 ml Q6HR PO 01/28/25 06:00 01/28/25 17:36 240 ML Pantoprazole Sodium 40 mg BID IV 01/27/25 22:00 01/29/25 09:25 40 MG Vancomycin HCl 0 ml @ 0 mls/hr PER PHARMACY IV 01/28/25 16:45 Cancel Piperacillin Sod/ Tazobactam Sod 100 ml @ 25 mls/hr Q8HR IV 01/28/25 22:00 01/29/25 14:04 25 MLS/HR objective General: Cachectic-appearing, afebrile, palor, mucosae are moist Cardiovascular: Regular S1 and S2. No murmurs, gallops or rubs. No JVD elevation. No pedal edema Respiratory: Normal B/L air entry on room air. Clear lung sounds on auscultation Abdomen: Soft, nontender, nondistended, normoactive bowel sounds, no rebound tenderness, dislodged G-tube, foramen appears to be closed at this time. Genitourinary: Deferred Psych/Mental Status: A/Ox2 laboratory and microbiology Laboratory Tests 01/29/25 15:11 01/29/25 05:25 Test 01/29/25 15:11 Range/Units Serum Glucose 100 # 74-106 mg/dL Problems(with codes): (1) Left lower lobe consolidation (2) Gastritis (3) Leukocytosis (4) Complication of gastrostomy tube Prognosis Assessment plan Hypoglycemia episode possibly a lab error Repeat glucose is 100 Patient has been seen by ID consult He is on broad-spectrum antibiotics Continue PPI Advance tube feedings as tolerated Discharge planning as per hospitalist Dietary Evaluation Review Comments: Nutrition Recommendation: 1) EN Jevity 1.2Cal @ 60ml/hr x 24hr (goal). Water flush 150ml Q6H if allowed, adjust PRN. TF at goal volume provides 1728 kcal (100%), 80 gm protein (100%), and 1762 ml free water(including flush). 2) Taper off Clinimx if pt tolerate TF @ 40ml/hr 3) Monitor NPO status, lab values, weight trend, and I/O Expected Outcomes/Goals: Intake to meet >75% estimated needs FU 2-3 days Plan discussed with: Patient, Other (Nurse) EJANNE ALCANTARA MD Jan 29, 2025 19:55
[2025-01-29 20:00] VITALS: PULSE 85
[2025-01-29 20:46] VITALS: BP 148/84; PULSE 89; RESP 18; TEMP 98.2; O2SAT 99
[2025-01-30] VITALS (9 sets, daily range): BP systolic 102–167; BP diastolic 1–90; PULSE 67–111; RESP 14–19; TEMP 97.4–98.6; O2SAT 90–99
[2025-01-30 05:54] LABS: Hematocrit 38.4 % (41.0-53.0); Hemoglobin 13.0 g/dL (13.5-17.5); Mean Corpuscular Hemoglobin 30.5 pg (28.0-32.0); Mean Corpuscular Volume 90.3 fL (80.0-100.0); Nucleated Red Blood Cells % 0.1 %
[2025-01-30] MEDS: ENSURE CLEAR Apple 8oz Carton GT SCH (06:00)
[2025-01-30 06:27] LABS: Chloride 98 mmol/L (98-107); Potassium 3.6 mmol/L (3.5-5.1)
[2025-01-30 06:28] LABS: Anion Gap 11 (5-15); Carbon Dioxide 26 mmol/L (20-31)
[2025-01-30 06:33] LABS: BUN/Creatinine Ratio 23.3 (10.0-20.0); Blood Urea Nitrogen 14 mg/dL (9-23); Glucose 88 mg/dL (74-106)
[2025-01-30 06:34] LABS: Magnesium 1.7 mg/dL (1.6-2.6)
[2025-01-30 06:35] LABS: Calcium 10.5 mg/dL (8.7-10.4); Sodium 135 mmol/L (136-145)
--- NOTE | 2025-01-30 12:37 | DVHPNRES ---
Progress Note Date Seen: Jan 30, 2025 Resident Creating Document: ATIF MURILLO RESIDENT Medical Necessity Reason Pt with a Central, PICC or Fol: No Subjective Review of Systems 69-year-old male with past medical history of oxygen-dependent COPD, CVA, dementia, depression, anxiety, atrial arrhythmia, dysphagia presents with complaints of a dislodged gastric tube. Information in this HPI is limited due to the patient being a poor historian. It was acquired with the assistance of the patient's sister Linda via telephone. Patient's sister states gastric tube was dislodged 2 nights ago. She contacted patient's PCP who told her that they would need referral to get PEG tube placed again. Home health nurse went into go see the patient yesterday and advised him to go to the emergency department. In the emergency department the provider did attempt to her placed the PEG tube however was unable to. Patient's sister endorses he gets 3 tube feedings daily. Patient has not been eating or drinking adequately the last 2 days. During the emergency department evaluation CBC, CMP is unremarkable. Patient has no complaints of fevers, shortness of breath, chest pain, palpitations, abdominal pain, nausea, vomiting. GI consulted for PEG tube replacement 01/30-Patient seen and examined. No overnight events. DC Clinimix, started PEG tube feeding Objective vital signs Vital Sign Date Time Temp Pulse Resp B/P (MAP) Pulse Ox O2 Delivery O2 Flow Rate FiO2 01/30/25 10:00 Nasal Cannula* 2 28 01/30/25 09:00 97.6 100 14 118/75 (89) 97 97.6 Total Intake and Output 01/29/25 01/29/25 01/30/25 15:00 23:00 07:00 Intake Total 1100 ml 100 ml 0 ml Balance 1100 ml 100 ml 0 ml medications Current Medications Medications Dose Ordered Sig/Tobias Route Start Time Stop Time Status Last Admin Dose Admin Dextrose/Sodium Chloride 1,000 ml @ 75 mls/hr [id number] IV 01/25/25 22:45 01/29/25 14:17 75 MLS/HR Ondansetron HCl 4 mg Q4HP PRN IV 01/25/25 22:45 Enoxaparin Sodium 40 mg DAILY SC 01/26/25 10:00 01/30/25 08:43 40 MG Nitroglycerin 0.4 mg Q5MINP PRN SL 01/25/25 22:45 Morphine Sulfate 2 mg Q30M PRN IV 01/25/25 22:45 Acetaminophen 650 mg Q6HP PRN AL 01/25/25 22:45 Amino Acids 0 ml @ 0 mls/hr PER PHARMACY IV 01/26/25 11:30 Diagnostic Test (Pha) 1 strip Q6HR 01/26/25 12:00 01/30/25 11:49 1 STRIP Dextrose 50 ml UD PRN IV 01/26/25 11:30 Insulin Human Regular FOLLOW SLIDING SCALE Q6HR SC 01/27/25 00:00 01/27/25 06:02 2 UNITS Amino Acids/ Electrolytes/ Dextrose 1,000 ml @ 41 mls/hr DAILY@2200 IV 01/26/25 22:00 01/29/25 22:04 41 MLS/HR Pantoprazole Sodium 40 mg BID IV 01/27/25 22:00 01/30/25 08:43 40 MG Vancomycin HCl 0 ml @ 0 mls/hr PER PHARMACY IV 01/28/25 16:45 Cancel Piperacillin Sod/ Tazobactam Sod 100 ml @ 25 mls/hr Q8HR IV 01/28/25 22:00 01/30/25 06:11 25 MLS/HR Enteral Nutritional Formula 240 ml Q6HR GT 01/30/25 06:00 Examination Patient lying in bed, in no acute distress General: Cachectic-appearing, afebrile, palor, mucosae are moist Cardiovascular: Regular S1 and S2. No murmurs, gallops or rubs. No JVD elevation. No pedal edema Respiratory: Normal B/L air entry on room air. Clear lung sounds on auscultation Abdomen: Soft, nontender, nondistended, normoactive bowel sounds, no rebound tenderness, dislodged G-tube, foramen appears to be closed at this time. Genitourinary: Deferred Psych/Mental Status: A/Ox2 laboratory and microbiology Laboratory Tests 01/30/25 05:21 Test 01/30/25 05:21 Range/Units Serum Glucose 88 74-106 mg/dL Microbiology Date/Time Source Procedure Growth Status 01/28/25 16:47 Blood Blood Culture - Preliminary NO GROWTH AFTER 24 HOURS OF INCUBATION. Resulted Labs and/or images reviewed: Labs reviewed by me, Image(s) reviewed by me Problem List/Assessment/Plan Problem List/Assessment/Plan PEG tube dislodgement status post placement 01/27/2025 Dysphagia Moderate gastritis Failure to thrive Hyperkalemia COPD on chronic oxygen dependence History of CVA History of dementia Upper EGD shows 1. Upper endoscopy revealed [id number] gastritis with some flecks of old blood 2. A percutaneous gastrostomy tube was placed through the anterior abdominal wall under sterile conditions by Dr. Joe Gonzalez using endoscopic guidance and assistance by me going through the same gastrostomy opening however internally a new opening was created in the body of the stomach close to the previous gastrostomy tube site 3. Placement of the tube was confirmed by repeat endoscopy and G-tube site was prepped and dressed in a sterile Plan/Recommendation Plan: Recommendation: Dr. Gonzalez: DC Clinimix, start PEG tube feedings ensure Clear q.6 hour. Continue Protonix 40 mg IV b.i.d.. WBC count trending down, H&H stable. Currently on Zosyn Discharge planning per primary team We will continue to follow up Thank you for consulting GI Case discussed Dr. Gonzalez Plan discussed with: Patient Dietary Evaluation Review Comments: Nutrition Recommendation: 1) EN Jevity 1.2Cal @ 60ml/hr x 24hr (goal). Water flush 150ml Q6H if allowed, adjust PRN. TF at goal volume provides 1728 kcal (100%), 80 gm protein (100%), and 1762 ml free water(including flush). 2) Taper off Clinimx if pt tolerate TF @ 40ml/hr 3) Monitor NPO status, lab values, weight trend, and I/O Expected Outcomes/Goals: Intake to meet >75% estimated needs FU 2-3 days ATIF MURILLO RESIDENT Jan 30, 2025 12:37
[2025-01-30] MEDS ORDERED: Glucerna Carbsteady SHAKE Vanilla 8oz PO SCH (13:45)
--- NOTE | 2025-01-30 16:18 | DVHPN2 ---
Subjective Patient is status post G-tube placement, leukocytosis trending up. We will draw blood cultures and start empirical IV antibiotics can we will get Infectious Disease involved. Changes from previous H/P or p: No Changes Eyes: No Pain, No Vision change, No Conjunctivae inflammation, No Eyelid inflammation, No Other, No Redness ENT: No Ear pain, No Ear discharge, No Nose pain, No Nose discharge, No Nose congestion, No Mouth pain, No Mouth swelling, No Throat pain, No Throat swelling, No Other Cardiovascular: No Chest Pain, No Palpitations, No Orthopnea, No Paroxysmal Noc. Dyspnea, No Edema, No Lt Headedness, No Other Respiratory: No Cough, No Dry, No Shortness of breath, No SOB with excertion, No Wheezing, No Hemoptysis, No Pleuritic Pain, No Sputum, No Other Gastrointestinal: No Nausea, No Vomiting, No Abdominal Pain, No Diarrhea, No Constipation, No Melena, No Hematochezia; Other (Dislodged G-tube) Genitourinary: No Dysuria, No Frequency, No Incontinence, No Hematuria, No Retention, No Other Musculoskeletal: No other, No neck pain, No shoulder pain, No arm pain, No back pain, No hand pain, No leg pain, No foot pain Skin: No Rash, No Lesions, No Jaundice, No Bruising, No Other Objective Vitals Vital Signs Date Time Temp Pulse Resp B/P (MAP) Pulse Ox O2 Delivery O2 Flow Rate FiO2 01/30/25 12:49 98.1 86 14 102/80 (87) 98 98.1 01/30/25 10:00 Nasal Cannula* 2 28 Intake/Output Intake and Output 01/30/25 07:00 Intake Total 1200 ml Balance 1200 ml Intake Oral 0 ml IV Total 1200 ml # Voids 1 Medications Current Medications Medications Dose Ordered Sig/Tobias Route Start Time Stop Time Status Last Admin Dose Admin Dextrose/Sodium Chloride 1,000 ml @ 75 mls/hr [id number] IV 01/25/25 22:45 01/29/25 14:17 75 MLS/HR Ondansetron HCl 4 mg Q4HP PRN IV 01/25/25 22:45 Enoxaparin Sodium 40 mg DAILY SC 01/26/25 10:00 01/30/25 08:43 40 MG Nitroglycerin 0.4 mg Q5MINP PRN SL 01/25/25 22:45 Morphine Sulfate 2 mg Q30M PRN IV 01/25/25 22:45 Acetaminophen 650 mg Q6HP PRN PA 01/25/25 22:45 Amino Acids 0 ml @ 0 mls/hr PER PHARMACY IV 01/26/25 11:30 Diagnostic Test (Pha) 1 strip Q6HR 01/26/25 12:00 01/30/25 11:49 1 STRIP Dextrose 50 ml UD PRN IV 01/26/25 11:30 Insulin Human Regular FOLLOW SLIDING SCALE Q6HR SC 01/27/25 00:00 01/27/25 06:02 2 UNITS Amino Acids/ Electrolytes/ Dextrose 1,000 ml @ 41 mls/hr DAILY@2200 IV 01/26/25 22:00 01/29/25 22:04 41 MLS/HR Pantoprazole Sodium 40 mg BID IV 01/27/25 22:00 01/30/25 08:43 40 MG Vancomycin HCl 0 ml @ 0 mls/hr PER PHARMACY IV 01/28/25 16:45 Cancel Piperacillin Sod/ Tazobactam Sod 100 ml @ 25 mls/hr Q8HR IV 01/28/25 22:00 01/30/25 14:08 25 MLS/HR Enteral Nutritional Formula 240 ml Q6HR GT 01/30/25 06:00 Enteral Nutritional Formula 240 ml QID PO 01/30/25 13:45 Enteral Nutritional Formula 330 ml QID GT 01/30/25 18:00 UNV Laboratory Results Laboratory Tests 01/30/25 05:21 Chemistry Test 01/30/25 05:21 Calcium Level 10.5 mg/dL (8.7-10.4) H Magnesium Level 1.7 mg/dL (1.6-2.6) Urinalysis Test 01/25/25 20:55 Urine Color Yellow (Yellow) Urine Clarity Turbid (Clear) H Urine pH 6.0 (5.0-9.0) Urine Specific [place] 1.030 (1.001-1.035) Urine Protein 1+ (Negative) H Urine Ketones 1+ (Negative) H Urine Blood Negative /uL (Negative) Urine Nitrite 2+ (Negative) H Urine Bilirubin Negative (Negative) Urine Urobilinogen Normal mg/dL (Negative) Urine Leukocyte Esterase Trace /uL (Negative) Urine RBC None seen /hpf (0 - 3) Urine Microscopic WBC 3 /HPF (0-3) Urine Squamous Epithelial Cells Few /hpf (<5) Urine Calcium Oxalate Crystals Mod (None Seen) Urine Bacteria Many /hpf (None Seen) H Urine Mucus Few (None Seen) Urine Glucose Normal mg/dL (Normal) Microbiology Microbiology Date/Time Source Procedure Growth Status 01/29/25 13:50 Nose MRSA Screen - Final Methicillin Resistant S.aureus Complete 01/28/25 16:47 Blood Blood Culture - Preliminary NO GROWTH AFTER 24 HOURS OF INCUBATION. Resulted Assessment/Plan Assessment/Plan 69-year-old male with a known history of chronic bed-bound status, history of CVA, status post PEG tube placement, dementia anxiety and depression disorder presented to the hospital with a dislodgement of G-tube 1. Malfunctioning G-tube, currently in OR for replacement 2. Chronic bed-bound status 3. History of COPD 4. Chronic respiratory failure on home O2 5. History of CVA 6. Alzheimer dementia 7. Anxiety and depression disorder 8. Leukocytosis rule out sepsis 9. Left-sided consolidation likely aspiration pneumonia 10. Stercoral colitis with the constipation -draw blood cultures, start broad-spectrum IV antibiotics, infectious disease consultation. -follow up General surgery for G-tube placement, wound care discussed with the bedside RN. Plan discussed with: Patient Date of Service: Jan 30, 2025 Billing Provider: VERNON GENAO MD Common Visit Codes: NOT BILLABLE VERNON GENAO MD Jan 30, 2025 16:18
[2025-01-30] MEDS: Jevity 1.2 Cal/Fiber 1 Liter GT SCH (18:00)
[2025-01-30] MEDS: Glucerna Carbsteady SHAKE Vanilla 8oz PO SCH (18:00)
[2025-01-30] MEDS: MUPIROCIN 2% OINT 15gm or 22gm FOR MRSA NARES EACHNOSTRI SCH (18:24)
[2025-01-31] VITALS (10 sets, daily range): BP systolic 118–144; BP diastolic 56–88; PULSE 71–106; RESP 16–18; TEMP 97.6–98.3; O2SAT 95–100
--- NOTE | 2025-01-31 14:44 | DVHPN2 ---
Consult Progress Note Objective vital signs Vital Sign Date Time Temp Pulse Resp B/P (MAP) Pulse Ox O2 Delivery O2 Flow Rate FiO2 01/31/25 12:35 98.0 91 16 138/83 (101) 95 98.0 01/31/25 10:00 Nasal Cannula 2.0 01/31/25 10:00 28 Total Intake and Output 01/30/25 01/30/25 01/31/25 15:00 23:00 07:00 Intake Total 100 ml 100 ml 0 ml Balance 100 ml 100 ml 0 ml medications Current Medications Medications Dose Ordered Sig/Tobias Route Start Time Stop Time Status Last Admin Dose Admin Dextrose/Sodium Chloride 1,000 ml @ 75 mls/hr [id number] IV 01/25/25 22:45 01/31/25 09:25 75 MLS/HR Ondansetron HCl 4 mg Q4HP PRN IV 01/25/25 22:45 Enoxaparin Sodium 40 mg DAILY SC 01/26/25 10:00 01/31/25 09:23 40 MG Nitroglycerin 0.4 mg Q5MINP PRN SL 01/25/25 22:45 Morphine Sulfate 2 mg Q30M PRN IV 01/25/25 22:45 Acetaminophen 650 mg Q6HP PRN MO 01/25/25 22:45 Amino Acids 0 ml @ 0 mls/hr PER PHARMACY IV 01/26/25 11:30 Diagnostic Test (Pha) 1 strip Q6HR 01/26/25 12:00 01/31/25 11:46 1 STRIP Dextrose 50 ml UD PRN IV 01/26/25 11:30 Insulin Human Regular FOLLOW SLIDING SCALE Q6HR SC 01/27/25 00:00 01/27/25 06:02 2 UNITS Amino Acids/ Electrolytes/ Dextrose 1,000 ml @ 41 mls/hr DAILY@2200 IV 01/26/25 22:00 01/30/25 23:12 41 MLS/HR Pantoprazole Sodium 40 mg BID IV 01/27/25 22:00 01/31/25 09:23 40 MG Vancomycin HCl 0 ml @ 0 mls/hr PER PHARMACY IV 01/28/25 16:45 Cancel Piperacillin Sod/ Tazobactam Sod 100 ml @ 25 mls/hr Q8HR IV 01/28/25 22:00 01/31/25 13:46 25 MLS/HR Enteral Nutritional Formula 330 ml QID GT 01/30/25 18:00 01/31/25 13:47 330 ML Mupirocin 1 applic BID EACHNOSTRI 01/30/25 16:30 02/04/25 16:29 01/31/25 09:24 1 APPLIC laboratory and microbiology Laboratory Tests 01/30/25 05:21 Test 01/30/25 05:21 Range/Units Serum Glucose 88 74-106 mg/dL Problem List/Assessment/Plan Problem List/Assessment/Plan ASSESSMENT AND PLAN: ID Problem List: \-- G-tube dislodgement s/p endoscopic replacement (01/27) \-- Leukocytosis (WBC up to 28.828.9) without documented fever \-- Suspected aspiration related to periprocedural endoscopy \-- Possible pneumonia (LLL consolidation on CT) \-- Constipation with significant rectal stool burden; possible colitis \-- Hypoxia on admission (now on 2 L NC) \-- Tachycardia (up to 105 bpm at times) \-- COPD (oxygen independence per transcript) \-- Dementia; depression; anxiety \-- Prior stroke \-- Chronic dysphagia with G-tube dependence \-- Poor oral/enteral intake prior to presentation; no bowel movements prior to admission, now with multiple BMs in last 24 hours Assessment This is a 69 y.o. male with a past medical history of COPD (oxygen independence per transcript), dementia, depression, anxiety, stroke, and chronic dysphagia with a history of G-tube placement, who presents after G-tube dislodgement with decreased feeds and constipation. G-tube was successfully replaced endoscopically on 01/[address] Gonzalez. Since 12/27 per transcript, patient has had persistent leukocytosis (peak WBC 28.828.9) without fevers; tachycardic at times (to 105). Hypoxia on admission (SpO2 94% RA), improved on 2 L NC (now 100%). Chest X-ray without acute intrathoracic process; CT noted significant rectal stool burden with possible rectal wall thickening/distension (possible stercoral colitis/constipation) and a large consolidation in the left lower lobe (LLL), with trace interstitial markings in the right posterior basilar segment. Clinical picture raises concern for aspiration related to the periprocedural endoscopy with possible superimposed pneumonia; colitis also on the differential. Multiple bowel movements over the last 24 hours may improve the inflammatory picture. 02/28: having multiple BMS Plan: \-- will fu on mrsa nares \-- Continue piperacillintazobactam (Zosyn) empirically to cover Pseudomonas and anaerobes for possible pneumonia and possible colitis. \-- Blood cultures have been ordered; follow up and narrow/stop antibiotics based on clinical course and culture results. \-- Do not anticipate antibiotics on discharge if clinical course improves; finalize plan pending trajectory and microbiology. \-- Continue bronchodilators and supplemental O2 as needed to maintain adequate oxygen saturation. \-- Supportive care for constipation/colitis per primary team; note that patient has had multiple bowel movements in the last 24 hours. Isolation Precautions: standard \*Plan is subject to change pending incorporation of new incoming information/diagnostics. Updates may be added as addendum at the bottom (OR TOP) of this note. Thank you for the consult. ID will continue to follow. Please contact Infectious Disease for any questions or concerns. Radha Wheeler M.D. [facility] Ph: ? Teams text: [email or web address] Electronically signed by: Radha Wheeler MD, 01/29/2025 \ Physical Exam: General: NAD Neck: Supple. No masses. HEENT: PERRL. Normal lids and conjunctiva. Moist mucous membranes. Oropharynx without lesions, exudates or excessive erythema. Normal appearance of the external aspects of the nose and ears. Heart: Regular rhythm, normal rate. No murmur. No lower extremity edema. Lungs: Normal respiratory effort. Clear to auscultation bilaterally. No wheezes. No crackles. Abdomen: Soft. Non-tender. Non-distended. No masses or abdominal hernia. Abdomen noted to be concave. G-tube present cdi Msk: No digital cyanosis. Normal strength and tone in all 4 limbs Skin: Warm and dry, no rashes. Neuro: Alert. No facial droop or slurred speech. Extra-ocular movements intact. Sensation intact to soft touch in all 4 limbs. Psych: Appropriate mood. Full affect. Oriented to person, place, time, and situation. Dietary Evaluation Review Comments: Nutrition Recommendation: 1) EN Jevity 1.2Cal @ 60ml/hr x 24hr (goal). Water flush 150ml Q6H if allowed, adjust PRN. TF at goal volume provides 1728 kcal (100%), 80 gm protein (100%), and 1762 ml free water(including flush). 2) Taper off Clinimx if pt tolerate TF @ 40ml/hr 3) Monitor NPO status, lab values, weight trend, and I/O Expected Outcomes/Goals: Intake to meet >75% estimated needs FU 2-3 days RADHA WHEELER MD Jan 31, 2025 14:43
--- NOTE | 2025-01-31 14:46 | DVHPN2 ---
Subjective Patient is status post G-tube placement, leukocytosis trending up. We will draw blood cultures and start empirical IV antibiotics can we will get Infectious Disease involved. Changes from previous H/P or p: No Changes Eyes: No Pain, No Vision change, No Conjunctivae inflammation, No Eyelid inflammation, No Other, No Redness ENT: No Ear pain, No Ear discharge, No Nose pain, No Nose discharge, No Nose congestion, No Mouth pain, No Mouth swelling, No Throat pain, No Throat swelling, No Other Cardiovascular: No Chest Pain, No Palpitations, No Orthopnea, No Paroxysmal Noc. Dyspnea, No Edema, No Lt Headedness, No Other Respiratory: No Cough, No Dry, No Shortness of breath, No SOB with excertion, No Wheezing, No Hemoptysis, No Pleuritic Pain, No Sputum, No Other Gastrointestinal: No Nausea, No Vomiting, No Abdominal Pain, No Diarrhea, No Constipation, No Melena, No Hematochezia; Other (Dislodged G-tube) Genitourinary: No Dysuria, No Frequency, No Incontinence, No Hematuria, No Retention, No Other Musculoskeletal: No other, No neck pain, No shoulder pain, No arm pain, No back pain, No hand pain, No leg pain, No foot pain Skin: No Rash, No Lesions, No Jaundice, No Bruising, No Other Objective Vitals Vital Signs Date Time Temp Pulse Resp B/P (MAP) Pulse Ox O2 Delivery O2 Flow Rate FiO2 01/31/25 12:35 98.0 91 16 138/83 (101) 95 98.0 01/31/25 10:00 Nasal Cannula 2.0 01/31/25 10:00 28 Intake/Output Intake and Output 01/31/25 07:00 Intake Total 200 ml Balance 200 ml Intake Oral 0 ml IV Total 200 ml # Voids 3 Medications Current Medications Medications Dose Ordered Sig/Tobias Route Start Time Stop Time Status Last Admin Dose Admin Dextrose/Sodium Chloride 1,000 ml @ 75 mls/hr [id number] IV 01/25/25 22:45 01/31/25 09:25 75 MLS/HR Ondansetron HCl 4 mg Q4HP PRN IV 01/25/25 22:45 Enoxaparin Sodium 40 mg DAILY SC 01/26/25 10:00 01/31/25 09:23 40 MG Nitroglycerin 0.4 mg Q5MINP PRN SL 01/25/25 22:45 Morphine Sulfate 2 mg Q30M PRN IV 01/25/25 22:45 Acetaminophen 650 mg Q6HP PRN OH 01/25/25 22:45 Amino Acids 0 ml @ 0 mls/hr PER PHARMACY IV 01/26/25 11:30 Diagnostic Test (Pha) 1 strip Q6HR 01/26/25 12:00 01/31/25 11:46 1 STRIP Dextrose 50 ml UD PRN IV 01/26/25 11:30 Insulin Human Regular FOLLOW SLIDING SCALE Q6HR SC 01/27/25 00:00 01/27/25 06:02 2 UNITS Amino Acids/ Electrolytes/ Dextrose 1,000 ml @ 41 mls/hr DAILY@2200 IV 01/26/25 22:00 01/30/25 23:12 41 MLS/HR Pantoprazole Sodium 40 mg BID IV 01/27/25 22:00 01/31/25 09:23 40 MG Vancomycin HCl 0 ml @ 0 mls/hr PER PHARMACY IV 01/28/25 16:45 Cancel Piperacillin Sod/ Tazobactam Sod 100 ml @ 25 mls/hr Q8HR IV 01/28/25 22:00 01/31/25 13:46 25 MLS/HR Enteral Nutritional Formula 330 ml QID GT 01/30/25 18:00 01/31/25 13:47 330 ML Mupirocin 1 applic BID EACHNOSTRI 01/30/25 16:30 02/04/25 16:29 01/31/25 09:24 1 APPLIC Laboratory Results Laboratory Tests 01/30/25 05:21 Urinalysis Test 01/25/25 20:55 Urine Color Yellow (Yellow) Urine Clarity Turbid (Clear) H Urine pH 6.0 (5.0-9.0) Urine Specific Only 1.030 (1.001-1.035) Urine Protein 1+ (Negative) H Urine Ketones 1+ (Negative) H Urine Blood Negative /uL (Negative) Urine Nitrite 2+ (Negative) H Urine Bilirubin Negative (Negative) Urine Urobilinogen Normal mg/dL (Negative) Urine Leukocyte Esterase Trace /uL (Negative) Urine RBC None seen /hpf (0 - 3) Urine Microscopic WBC 3 /HPF (0-3) Urine Squamous Epithelial Cells Few /hpf (<5) Urine Calcium Oxalate Crystals Mod (None Seen) Urine Bacteria Many /hpf (None Seen) H Urine Mucus Few (None Seen) Urine Glucose Normal mg/dL (Normal) Microbiology Microbiology Date/Time Source Procedure Growth Status 01/29/25 13:50 Nose MRSA Screen - Final Methicillin Resistant S.aureus Complete 01/28/25 16:47 Blood Blood Culture - Preliminary NO GROWTH AFTER 48 HOURS OF INCUBATION. Resulted Assessment/Plan Assessment/Plan 69-year-old male with a known history of chronic bed-bound status, history of CVA, status post PEG tube placement, dementia anxiety and depression disorder presented to the hospital with a dislodgement of G-tube 1. Malfunctioning G-tube, currently in OR for replacement 2. Chronic bed-bound status 3. History of COPD 4. Chronic respiratory failure on home O2 5. History of CVA 6. Alzheimer dementia 7. Anxiety and depression disorder 8. Leukocytosis rule out sepsis 9. Left-sided consolidation likely aspiration pneumonia 10. Stercoral colitis with the constipation -swallow evaluation. -draw blood cultures, start broad-spectrum IV antibiotics, infectious disease consultation. -follow up General surgery for G-tube placement, wound care discussed with the bedside RN. Plan discussed with: Patient My Orders Orders - VERNON GENAO MD Procedure Category Date Status Time * Swallow Request ST 01/31/25 Transmitted 13:01 Date of Service: Jan 31, 2025 Billing Provider: VERNON GENAO MD Common Visit Codes: NOT BILLABLE VERNON GENAO MD Jan 31, 2025 14:46
--- NOTE | 2025-01-31 14:46 | DVHPN2 ---
Consult Progress Note Date Seen: Jan 31, 2025 Subjective Patient reports: Feels better (leukocytosis improved, on 2lNC) Objective vital signs Vital Sign Date Time Temp Pulse Resp B/P (MAP) Pulse Ox O2 Delivery O2 Flow Rate FiO2 01/31/25 12:35 98.0 91 16 138/83 (101) 95 98.0 01/31/25 10:00 Nasal Cannula 2.0 01/31/25 10:00 28 Total Intake and Output 01/30/25 01/30/25 01/31/25 15:00 23:00 07:00 Intake Total 100 ml 100 ml 0 ml Balance 100 ml 100 ml 0 ml medications Current Medications Medications Dose Ordered Sig/Tobias Route Start Time Stop Time Status Last Admin Dose Admin Dextrose/Sodium Chloride 1,000 ml @ 75 mls/hr [id number] IV 01/25/25 22:45 01/31/25 09:25 75 MLS/HR Ondansetron HCl 4 mg Q4HP PRN IV 01/25/25 22:45 Enoxaparin Sodium 40 mg DAILY SC 01/26/25 10:00 01/31/25 09:23 40 MG Nitroglycerin 0.4 mg Q5MINP PRN SL 01/25/25 22:45 Morphine Sulfate 2 mg Q30M PRN IV 01/25/25 22:45 Acetaminophen 650 mg Q6HP PRN MT 01/25/25 22:45 Amino Acids 0 ml @ 0 mls/hr PER PHARMACY IV 01/26/25 11:30 Diagnostic Test (Pha) 1 strip Q6HR 01/26/25 12:00 01/31/25 11:46 1 STRIP Dextrose 50 ml UD PRN IV 01/26/25 11:30 Insulin Human Regular FOLLOW SLIDING SCALE Q6HR SC 01/27/25 00:00 01/27/25 06:02 2 UNITS Amino Acids/ Electrolytes/ Dextrose 1,000 ml @ 41 mls/hr DAILY@2200 IV 01/26/25 22:00 01/30/25 23:12 41 MLS/HR Pantoprazole Sodium 40 mg BID IV 01/27/25 22:00 01/31/25 09:23 40 MG Vancomycin HCl 0 ml @ 0 mls/hr PER PHARMACY IV 01/28/25 16:45 Cancel Piperacillin Sod/ Tazobactam Sod 100 ml @ 25 mls/hr Q8HR IV 01/28/25 22:00 01/31/25 13:46 25 MLS/HR Enteral Nutritional Formula 330 ml QID GT 01/30/25 18:00 01/31/25 13:47 330 ML Mupirocin 1 applic BID EACHNOSTRI 01/30/25 16:30 02/04/25 16:29 01/31/25 09:24 1 APPLIC laboratory and microbiology Laboratory Tests 01/30/25 05:21 Test 01/30/25 05:21 Range/Units Serum Glucose 88 74-106 mg/dL Problem List/Assessment/Plan Problem List/Assessment/Plan ASSESSMENT AND PLAN: ID Problem List: \-- G-tube dislodgement s/p endoscopic replacement (01/27) \-- Leukocytosis (WBC up to 28.828.9) without documented fever \-- Suspected aspiration related to periprocedural endoscopy \-- Possible pneumonia (LLL consolidation on CT) \-- Constipation with significant rectal stool burden; possible colitis \-- Hypoxia on admission (now on 2 L NC) \-- Tachycardia (up to 105 bpm at times) \-- COPD (oxygen independence per transcript) \-- Dementia; depression; anxiety \-- Prior stroke \-- Chronic dysphagia with G-tube dependence \-- Poor oral/enteral intake prior to presentation; no bowel movements prior to admission, now with multiple BMs in last 24 hours Assessment This is a 69 y.o. male with a past medical history of COPD (oxygen independence per transcript), dementia, depression, anxiety, stroke, and chronic dysphagia with a history of G-tube placement, who presents after G-tube dislodgement with decreased feeds and constipation. G-tube was successfully replaced endoscopically on 01/[address] Gonzalez. Since 12/27 per transcript, patient has had persistent leukocytosis (peak WBC 28.828.9) without fevers; tachycardic at times (to 105). Hypoxia on admission (SpO2 94% RA), improved on 2 L NC (now 100%). Chest X-ray without acute intrathoracic process; CT noted significant rectal stool burden with possible rectal wall thickening/distension (possible stercoral colitis/constipation) and a large consolidation in the left lower lobe (LLL), with trace interstitial markings in the right posterior basilar segment. Clinical picture raises concern for aspiration related to the periprocedural endoscopy with possible superimposed pneumonia; colitis also on the differential. Multiple bowel movements over the last 24 hours may improve the inflammatory picture. 02/28: having multiple BMS MRSA nares positive, over suspicion for MRSA pneumonia is low. Plan: \-- switch Zosyn to Ceftriaxone for pneumonia and colitis. \-- Blood cultures have been ordered; follow up and narrow/stop antibiotics based on clinical course and culture results. \-- Do not anticipate antibiotics on discharge if clinical course improves; finalize plan pending trajectory and microbiology. \-- Continue bronchodilators and supplemental O2 as needed to maintain adequate oxygen saturation. \-- Supportive care for constipation/colitis per primary team; note that patient has had multiple bowel movements in the last 24 hours. Isolation Precautions: standard \*Plan is subject to change pending incorporation of new incoming information/diagnostics. Updates may be added as addendum at the bottom (OR TOP) of this note. Thank you for the consult. ID will continue to follow. Please contact Infectious Disease for any questions or concerns. Radha Wheeler M.D. [facility] Ph: ? \ Physical Exam: General: NAD Neck: Supple. No masses. HEENT: PERRL. Normal lids and conjunctiva. Moist mucous membranes. Oropharynx without lesions, exudates or excessive erythema. Normal appearance of the external aspects of the nose and ears. Heart: Regular rhythm, normal rate. No murmur. No lower extremity edema. Lungs: Normal respiratory effort. Clear to auscultation bilaterally. No wheezes. No crackles. Abdomen: Soft. Non-tender. Non-distended. No masses or abdominal hernia. Abdomen noted to be concave. G-tube present cdi Msk: No digital cyanosis. Normal strength and tone in all 4 limbs Skin: Warm and dry, no rashes. Neuro: Alert. No facial droop or slurred speech. Extra-ocular movements intact. Sensation intact to soft touch in all 4 limbs. Psych: Appropriate mood. Full affect. Oriented to person, place, time, and situation. Plan discussed with: Patient Dietary Evaluation Review Comments: Nutrition Recommendation: 1) EN Jevity 1.2Cal @ 60ml/hr x 24hr (goal). Water flush 150ml Q6H if allowed, adjust PRN. TF at goal volume provides 1728 kcal (100%), 80 gm protein (100%), and 1762 ml free water(including flush). 2) Taper off Clinimx if pt tolerate TF @ 40ml/hr 3) Monitor NPO status, lab values, weight trend, and I/O Expected Outcomes/Goals: Intake to meet >75% estimated needs FU 2-3 days RADHA WHEELER MD Jan 31, 2025 14:46
--- NOTE | 2025-01-31 17:46 | DVHPN2 ---
Progress Note Date Seen: Jan 31, 2025 Resident Creating Document: ATIF MURILLO RESIDENT Medical Necessity Reason Pt with a Central, PICC or Fol: No Subjective Review of Systems Patient seen and examined, no complaints. Started G-tube feeding. Objective vital signs Vital Sign Date Time Temp Pulse Resp B/P (MAP) Pulse Ox O2 Delivery O2 Flow Rate FiO2 01/31/25 17:00 97.9 80 16 144/76 (98) 99 97.9 01/31/25 10:00 Nasal Cannula 2.0 01/31/25 10:00 28 Total Intake and Output 01/30/25 01/30/25 01/31/25 15:00 23:00 07:00 Intake Total 100 ml 100 ml 0 ml Balance 100 ml 100 ml 0 ml medications Current Medications Medications Dose Ordered Sig/Tobias Route Start Time Stop Time Status Last Admin Dose Admin Dextrose/Sodium Chloride 1,000 ml @ 75 mls/hr [id number] IV 01/25/25 22:45 01/31/25 09:25 75 MLS/HR Ondansetron HCl 4 mg Q4HP PRN IV 01/25/25 22:45 Enoxaparin Sodium 40 mg DAILY SC 01/26/25 10:00 01/31/25 09:23 40 MG Nitroglycerin 0.4 mg Q5MINP PRN SL 01/25/25 22:45 Morphine Sulfate 2 mg Q30M PRN IV 01/25/25 22:45 Acetaminophen 650 mg Q6HP PRN OK 01/25/25 22:45 Amino Acids 0 ml @ 0 mls/hr PER PHARMACY IV 01/26/25 11:30 Diagnostic Test (Pha) 1 strip Q6HR 01/26/25 12:00 01/31/25 11:46 1 STRIP Dextrose 50 ml UD PRN IV 01/26/25 11:30 Insulin Human Regular FOLLOW SLIDING SCALE Q6HR SC 01/27/25 00:00 01/27/25 06:02 2 UNITS Amino Acids/ Electrolytes/ Dextrose 1,000 ml @ 41 mls/hr DAILY@2200 IV 01/26/25 22:00 01/30/25 23:12 41 MLS/HR Pantoprazole Sodium 40 mg BID IV 01/27/25 22:00 01/31/25 09:23 40 MG Vancomycin HCl 0 ml @ 0 mls/hr PER PHARMACY IV 01/28/25 16:45 Cancel Enteral Nutritional Formula 330 ml QID GT 01/30/25 18:00 01/31/25 13:47 330 ML Mupirocin 1 applic BID EACHNOSTRI 01/30/25 16:30 02/04/25 16:29 01/31/25 09:24 1 APPLIC Ceftriaxone Sodium/Dextrose 50 ml @ 50 mls/hr DAILY IV 02/01/25 10:00 Examination Patient lying in bed, in no acute distress General: Cachectic-appearing, afebrile, palor, mucosae are moist Cardiovascular: Regular S1 and S2. No murmurs, gallops or rubs. No JVD elevation. No pedal edema Respiratory: Normal B/L air entry on room air. Clear lung sounds on auscultation Abdomen: Soft, nontender, nondistended, normoactive bowel sounds, no rebound tenderness, G-tube site clean dry intact. No erythema. Genitourinary: Deferred Psych/Mental Status: A/Ox2 laboratory and microbiology Laboratory Tests 01/30/25 05:21 Test 01/30/25 05:21 Range/Units Serum Glucose 88 74-106 mg/dL Microbiology Date/Time Source Procedure Growth Status 01/29/25 13:50 Nose MRSA Screen - Final Methicillin Resistant S.aureus Complete 01/28/25 16:47 Blood Blood Culture - Preliminary NO GROWTH AFTER 72 HOURS OF INCUBATION. Resulted Labs and/or images reviewed: Labs reviewed by me, Image(s) reviewed by me Problem List/Assessment/Plan Problem List/Assessment/Plan PEG tube dislodgement status post placement 01/27/2025 Dysphagia Moderate gastritis Failure to thrive Hyperkalemia COPD on chronic oxygen dependence History of CVA History of dementia Upper EGD shows 1. Upper endoscopy revealed epig-[id number] gastritis with some flecks of old blood 2. A percutaneous gastrostomy tube was placed through the anterior abdominal wall under sterile conditions by Dr. Joe Gonzalez using endoscopic guidance and assistance by me going through the same gastrostomy opening however internally a new opening was created in the body of the stomach close to the previous gastrostomy tube site 3. Placement of the tube was confirmed by repeat endoscopy and G-tube site was prepped and dressed in a sterile Plan/Recommendation Plan: Recommendation: Dr. Gonzalez: DC Clinimix, start PEG tube feedings ensure Jevity q.6 hour. Started metoclopramide q.6 hours scheduled. Continue Protonix 40 mg IV b.i.d.. WBC count trending down, H&H stable. Currently on Zosyn Discharge planning per primary team We will continue to follow up . Tried calling sister, could not reach. Thank you for consulting GI Case discussed Dr. Gonzalez Plan discussed with: Patient My Orders My Orders Orders - ATIF MURILLO Procedure Category Date Status Time Comprehensive LAB 02/01/25 Verified Metabolic Panel 04:00 Magnesium LAB 02/01/25 Verified 04:00 Phosphorus LAB 02/01/25 Verified 04:00 Dietary Evaluation Review Comments: Nutrition Recommendation: 1) EN Jevity 1.2Cal @ 60ml/hr x 24hr (goal). Water flush 150ml Q6H if allowed, adjust PRN. TF at goal volume provides 1728 kcal (100%), 80 gm protein (100%), and 1762 ml free water(including flush). 2) Taper off Clinimx if pt tolerate TF @ 40ml/hr 3) Monitor NPO status, lab values, weight trend, and I/O Expected Outcomes/Goals: Intake to meet >75% estimated needs FU 2-3 days ATIF MURILLO RESIDENT Jan 31, 2025 17:46
[2025-01-31] MEDS: METOCLOPRAMIDE HCL 5MG/ml INJ 2ml VIAL IV SCH (18:00)
[2025-02-01] VITALS (7 sets, daily range): BP systolic 127–145; BP diastolic 60–80; PULSE 75–90; RESP 16–19; TEMP 97.4–97.9; O2SAT 96–100
[2025-02-01 10:30] LABS: Alanine Aminotransferase 13 U/L (7-40); Albumin 3.8 g/dL (3.2-4.8); Alkaline Phosphatase 89 U/L (46-116); Anion Gap 7 (5-15); BUN/Creatinine Ratio 15.5 (10.0-20.0); Calcium 10.4 mg/dL (8.7-10.4); Carbon Dioxide 30 mmol/L (20-31); Chloride 100 mmol/L (98-107); Glucose 91 mg/dL (74-106); Magnesium 1.8 mg/dL (1.6-2.6); Potassium 4.2 mmol/L (3.5-5.1); Sodium 137 mmol/L (136-145); Total Protein 7.1 g/dL (5.7-8.2)
[2025-02-01 10:33] LABS: Bilirubin, Total 0.2 mg/dL (0.2-1.0); Blood Urea Nitrogen 9 mg/dL (9-23)
--- NOTE | 2025-02-01 11:11 | ECG ---
[facility] Test Date: 2025-02-01 Test Time: 10:30:10 Pat Name: EDNA SANTAMARIA Department: Respiratoy Room: 0251T B Gender: M Group Account Director: KARLOSETERSPARIS2 : 1955 Requested By: VERNON GENAO Order Number: [id number] Reading MD: Jd Swan Measurements Intervals [place] Rate: 80 P: -66 IA: 108 QRS: -40 QRSD: 77 T: 64 QT: 377 QTc: 435 Interpretive Statements Sinus or ectopic atrial rhythm Short IA interval Left anterior fascicular block Anteroseptal infarct, old Electronically Signed On 02-01-2025 17:38:18 PST by Jd Swan Please click the below link to view image of tracing.
[2025-02-01 12:28] LABS: Hematocrit 36.2 % (41.0-53.0); Hemoglobin 12.3 g/dL (13.5-17.5); Mean Corpuscular Hemoglobin 30.2 pg (28.0-32.0); Mean Corpuscular Volume 88.9 fL (80.0-100.0); Nucleated Red Blood Cells % 0.1 %
--- NOTE | 2025-02-01 13:50 | DVHDS2 ---
Discharge Summary Date of Admission Jan 25, 2025 at 19:15 Date of Discharge: Feb 01, 2025 Labs/Diagnostic Data: Laboratory Results Test 02/01/25 12:15 02/01/25 11:19 02/01/25 09:30 01/30/25 05:21 White Blood Count 12.2 10^3/uL (4.4-10.8) Red Blood Count 4.08 10^6/uL (4.5-5.90) Hemoglobin 12.3 g/dL (13.5-17.5) Hematocrit 36.2 % (41.0-53.0) Mean Corpuscular Volume 88.9 fL (80.0-100.0) Mean Corpuscular Hemoglobin 30.2 pg (28.0-32.0) Mean Corpuscular Hemoglobin Concent 33.9 g/dL (32.0-36.0) Red Cell Distribution Width 13.3 % (11.8-14.3) Platelet Count 424 10^3/uL (140-450) Mean Platelet Volume 8.2 fL (6.9-10.8) Neutrophils (%) (Auto) 75.6 % (37.0-80.0) Lymphocytes (%) (Auto) 10.4 % (10.0-50.0) Monocytes (%) (Auto) 11.6 % (0.0-12.0) Eosinophils (%) (Auto) 1.9 % (0.0-7.0) Basophils (%) (Auto) 0.5 % (0.0-2.0) Neutrophils # (Auto) 9.2 10 ^3/uL (1.6-8.6) Lymphocytes # (Auto) 1.3 10 ^3/uL (0.4-5.4) Monocytes # (Auto) 1.4 10 ^3/uL (0-1.3) Eosinophils # (Auto) 0.2 10 ^3/uL (0-0.8) Basophils # (Auto) 0.1 10 ^3/uL (0-0.2) Nucleated Red Blood Cells 0.1 % POC Glucose 97 mg/dl (70-106) Sodium Level 137 mmol/L (136-145) Potassium Level 4.2 mmol/L (3.5-5.1) Chloride Level 100 mmol/L (98-107) Carbon Dioxide Level 30 mmol/L (20-31) Anion Gap 7 (5-15) Blood Urea Nitrogen 9 mg/dL (9-23) Creatinine 0.58 mg/dL (0.700-1.30) Glomerular Filtration Rate Calc 106 mL/min (>90) BUN/Creatinine Ratio 15.5 (10.0-20.0) Serum Glucose 91 mg/dL (74-106) Calcium Level 10.4 mg/dL (8.7-10.4) Phosphorus Level 2.6 mg/dL (2.4-5.1) Magnesium Level 1.8 mg/dL (1.6-2.6) Total Bilirubin 0.2 mg/dL (0.2-1.0) Aspartate Amino Transferase (AST) 22 U/L (13-40) Alanine Aminotransferase (ALT) 13 U/L (7-40) Alkaline Phosphatase 89 U/L (46-116) Total Protein 7.1 g/dL (5.7-8.2) Albumin 3.8 g/dL (3.2-4.8) Vancomycin Level Trough 7.5 ug/mL (5-10) Test 01/28/25 07:25 01/27/25 10:10 01/26/25 07:32 01/25/25 20:55 Differential Total Cells Counted 100.0 (100) Neutrophils % (Manual) 83 (37.0-80.0) Band Neutrophils % (Manual) 3 Lymphocytes % (Manual) 4 (10.0-50.0) Monocytes % (Manual) 10 (0-12) Eosinophils % (Manual) 0 (0-7) Basophils % (Manual) 0 (0.0-2.0) Metamyelocytes % (manual) 0 Myelocytes % (Manual) 0 Promyelocytes % (Manual) 0 Blast Cells % (Manual) 0 Reactive Lymphocytes 0 Platelet Estimate Adequate Prothrombin Time 11.9 sec (9.3-11.8) Prothrombin Time INR 1.14 (0.9-1.15) Activated Partial Thromboplast Time 23.2 SEC (24.5-34.5) Triglycerides Level 42 mg/dL (< 150) Direct Bilirubin 0.2 mg/dL (<0.3) Urine Color Yellow (Yellow) Urine Clarity Turbid (Clear) Urine pH 6.0 (5.0-9.0) Urine Specific [place] 1.030 (1.001-1.035) Urine Protein 1+ (Negative) Urine Ketones 1+ (Negative) Urine Blood Negative /uL (Negative) Urine Nitrite 2+ (Negative) Urine Bilirubin Negative (Negative) Urine Urobilinogen Normal mg/dL (Negative) Urine Leukocyte Esterase Trace /uL (Negative) Urine RBC None seen /hpf (0 - 3) Urine Microscopic WBC 3 /HPF (0-3) Urine Squamous Epithelial Cells Few /hpf (<5) Urine Calcium Oxalate Crystals Mod (None Seen) Urine Bacteria Many /hpf (None Seen) Urine Mucus Few (None Seen) Urine Glucose Normal mg/dL (Normal) Other Laboratory Tests 02/01/25 12:15 02/01/25 09:30 Brief Hx & Hospital Course: 69-year-old male with a known history of chronic bed-bound status, history of CVA, status post PEG tube placement, dementia anxiety and depression disorder presented to the hospital with a dislodgement of G-tube . PATIENT WAS EVENTUALLY ADMITTED. PATIENT WAS SEEN BY GI AND G-TUBE WAS REPLACED. PATIENT IS CURRENTLY TOLERATING TUBE FAILURE. PATIENT WAS QUESTIONABLE TREATED FOR PNEUMONIA WELL PSEUDOMONAS COLITIS. PATIENT WAS SEEN BY GI AND INFECTIOUS DISEASE SPECIALIST. PATIENT IS CURRENTLY STABLE TO BE DISCHARGED. PATIENT DOES NOT NEED MORE ANTIBIOTICS. Condition at Discharge: Stable Final Diagnosis/Problems List 69-year-old male with a known history of chronic bed-bound status, history of CVA, status post PEG tube placement, dementia anxiety and depression disorder presented to the hospital with a dislodgement of G-tube 1. Malfunctioning G-tube, currently in OR for replacement 2. Chronic bed-bound status 3. History of COPD 4. Chronic respiratory failure on home O2 5. History of CVA 6. Alzheimer dementia 7. Anxiety and depression disorder 8. Leukocytosis ruleD out sepsis 9. Left-sided consolidation likely aspiration pneumonia 10. Stercoral colitis with the constipation Discharge Disposition: Home with Health Services SNF Discharge Will this Physician continue t: No Discharge Instruct/Medications Diet: See Comment Diet comment: TUBE FEEDING Activity: No Restrictions, As Tolerated Follow Up/Referral: FOLLOW UP WITH THE PCP IN ONE WEEK Medications: RESUME HOME MEDICATIONS Continued Medications: Aspirin (Aspir-81) 81 Mg Tab 1 TAB PO DAILY, #90 TAB 1 Refill Cholecalciferol (Vitamin D3) 2,000 Unit Tab 2000 UNIT OR DAILY, TAB Divalproex Sodium (Depakote) 500 Mg Tab 500 MG PO DAILY, TAB Scheduled Aspirin (Aspir-81), 1 TAB PO DAILY, (Reported) Cholecalciferol (Vitamin D3), 2,000 UNIT OR DAILY, (Reported) Divalproex Sodium (Depakote), 500 MG PO DAILY, (Reported) Discharge Statement: "Patient was advised to return to the ER or call 911 if any headaches, dizziness, shortness of breath, chest pain, abdominal pain, bleeding, fevers, or worsening of medical condition. Patient was counseled about treatment plan, medications, possible side effects, patientverbalized understanding. All questions were answered to the best of my ability. This discharge took greater then 30 minutes in planning, reviewing documentation, counseling the patient, and discussing with other team members." ASSESSMENT ASSESSMENT Assessment 69-year-old male with a known history of chronic bed-bound status, history of CVA, status post PEG tube placement, dementia anxiety and depression disorder presented to the hospital with a dislodgement of G-tube 1. Malfunctioning G-tube, currently in OR for replacement 2. Chronic bed-bound status 3. History of COPD 4. Chronic respiratory failure on home O2 5. History of CVA 6. Alzheimer dementia 7. Anxiety and depression disorder 8. Leukocytosis ruleD out sepsis 9. Left-sided consolidation likely aspiration pneumonia 10. Stercoral colitis with the constipation Date of Service: Feb 01, 2025 Billing Provider: VERNON GENAO MD Common Visit Codes: NOT BILLABLE VERNON GENAO MD Feb 01, 2025 13:50
--- NOTE | 2025-02-01 16:53 | DVHPN2 ---
Progress Note Date Seen: Feb 01, 2025 Resident Creating Document: ATIF MURILLO RESIDENT Medical Necessity Reason Pt with a Central, PICC or Fol: No Subjective Patient reports: No new complaints, Feels better Objective vital signs Vital Sign Date Time Temp Pulse Resp B/P (MAP) Pulse Ox O2 Delivery O2 Flow Rate FiO2 02/01/25 16:45 97.8 84 17 132/80 (97) 97 97.8 02/01/25 10:00 Nasal Cannula 2.0 02/01/25 10:00 28 Total Intake and Output 01/31/25 01/31/25 02/01/25 15:00 23:00 07:00 Intake Total 100 ml 1642 ml 0 ml Balance 100 ml 1642 ml 0 ml medications Current Medications Medications Dose Ordered Sig/Tobias Route Start Time Stop Time Status Last Admin Dose Admin Dextrose/Sodium Chloride 1,000 ml @ 75 mls/hr [id number] IV 01/25/25 22:45 02/01/25 11:20 75 MLS/HR Ondansetron HCl 4 mg Q4HP PRN IV 01/25/25 22:45 Enoxaparin Sodium 40 mg DAILY SC 01/26/25 10:00 02/01/25 10:04 40 MG Nitroglycerin 0.4 mg Q5MINP PRN SL 01/25/25 22:45 Morphine Sulfate 2 mg Q30M PRN IV 01/25/25 22:45 Acetaminophen 650 mg Q6HP PRN RI 01/25/25 22:45 Amino Acids 0 ml @ 0 mls/hr PER PHARMACY IV 01/26/25 11:30 Diagnostic Test (Pha) 1 strip Q6HR 01/26/25 12:00 02/01/25 12:13 1 STRIP Dextrose 50 ml UD PRN IV 01/26/25 11:30 Insulin Human Regular FOLLOW SLIDING SCALE Q6HR SC 01/27/25 00:00 01/27/25 06:02 2 UNITS Amino Acids/ Electrolytes/ Dextrose 1,000 ml @ 41 mls/hr DAILY@2200 IV 01/26/25 22:00 01/30/25 23:12 41 MLS/HR Pantoprazole Sodium 40 mg BID IV 01/27/25 22:00 02/01/25 10:04 40 MG Vancomycin HCl 0 ml @ 0 mls/hr PER PHARMACY IV 01/28/25 16:45 Cancel Enteral Nutritional Formula 330 ml QID GT 01/30/25 18:00 02/01/25 05:49 330 ML Mupirocin 1 applic BID EACHNOSTRI 01/30/25 16:30 02/04/25 16:29 02/01/25 10:05 1 APPLIC Ceftriaxone Sodium/Dextrose 50 ml @ 50 mls/hr DAILY IV 02/01/25 10:00 02/01/25 10:04 50 MLS/HR Metoclopramide HCl 10 mg Q8HR IV 01/31/25 18:00 Examination Patient lying in bed, in no acute distress General: Cachectic-appearing, afebrile, palor, mucosae are moist Cardiovascular: Regular S1 and S2. No murmurs, gallops or rubs. No JVD elevation. No pedal edema Respiratory: Normal B/L air entry on room air. Clear lung sounds on auscultation Abdomen: Soft, nontender, nondistended, normoactive bowel sounds, no rebound tenderness, G-tube site clean dry intact. No erythema. Genitourinary: Deferred Psych/Mental Status: A/Ox2 laboratory and microbiology Laboratory Tests 02/01/25 12:15 02/01/25 09:30 Test 02/01/25 09:30 Range/Units Serum Glucose 91 74-106 mg/dL Microbiology Date/Time Source Procedure Growth Status 01/29/25 13:50 Nose MRSA Screen - Final Methicillin Resistant S.aureus Complete 01/28/25 16:47 Blood Blood Culture - Preliminary NO GROWTH AFTER 72 HOURS OF INCUBATION. Resulted Labs and/or images reviewed: Labs reviewed by me, Image(s) reviewed by me Problem List/Assessment/Plan Problem List/Assessment/Plan PEG tube dislodgement status post placement 01/27/2025 Dysphagia Moderate gastritis Failure to thrive Hyperkalemia COPD on chronic oxygen dependence History of CVA History of dementia Upper EGD shows 1. Upper endoscopy revealed [id number] gastritis with some flecks of old blood 2. A percutaneous gastrostomy tube was placed through the anterior abdominal wall under sterile conditions by Dr. Joe Gonzalez using endoscopic guidance and assistance by me going through the same gastrostomy opening however internally a new opening was created in the body of the stomach close to the previous gastrostomy tube site 3. Placement of the tube was confirmed by repeat endoscopy and G-tube site was prepped and dressed in a sterile Plan/Recommendation Plan: Recommendation: Dr. Gonzalez: DC Clinimix, start PEG tube feedings ensure Jevity q.6 hour. Started metoclopramide q.6 hours scheduled. Continue Protonix 40 mg IV b.i.d.. WBC count trending down, H&H stable. Currently on Zosyn Discharge planning per primary team We will continue to follow up . Tried calling sister, could not reach. Thank you for consulting GI Case discussed Dr. Gonzalez Plan discussed with: Patient My Orders My Orders Orders - ATIF MURILLO Procedure Category Date Status Time Metoclopramide PHA 01/31/25 In Process Injection (Reglan 18:00 Comprehensive LAB 02/02/25 Verified Metabolic Panel 04:00 Magnesium LAB 02/02/25 Verified 04:00 Phosphorus LAB 02/02/25 Verified 04:00 Clinimix Per Pharmacy [facility] 02/01/25 In Process 22:00 Dietary Evaluation Review Comments: Nutrition Recommendation: 1) EN Jevity 1.2Cal @ 60ml/hr x 24hr (goal). Water flush 150ml Q6H if allowed, adjust PRN. TF at goal volume provides 1728 kcal (100%), 80 gm protein (100%), and 1762 ml free water(including flush). 2) Taper off Clinimx if pt tolerate TF @ 40ml/hr 3) Monitor NPO status, lab values, weight trend, and I/O Expected Outcomes/Goals: Intake to meet >75% estimated needs FU 2-3 days ATIF MURILLO Feb 01, 2025 16:53
--- NOTE | 2025-02-02 17:50 | DVHPN2 ---
Consult Progress Note Objective vital signs Vital Sign Date Time Temp Pulse Resp B/P (MAP) Pulse Ox O2 Delivery O2 Flow Rate FiO2 02/01/25 19:45 Room Air* 0 21 02/01/25 16:45 97.8 84 17 132/80 (97) 97 97.8 Total Intake and Output 02/01/25 02/01/25 02/02/25 15:00 23:00 07:00 Intake Total 0 ml 0 ml Balance 0 ml 0 ml medications Current Medications Medications Dose Ordered Sig/Tobias Route Start Time Stop Time Status Last Admin Dose Admin Vancomycin HCl 0 ml @ 0 mls/hr PER PHARMACY IV 01/28/25 16:45 Cancel laboratory and microbiology Laboratory Tests 02/01/25 12:15 02/01/25 09:30 Test 02/01/25 09:30 Range/Units Serum Glucose 91 74-106 mg/dL Problem List/Assessment/Plan Problem List/Assessment/Plan ASSESSMENT AND PLAN: ID Problem List: \-- G-tube dislodgement s/p endoscopic replacement (01/27) \-- Leukocytosis (WBC up to 28.828.9) without documented fever \-- Suspected aspiration related to periprocedural endoscopy \-- Possible pneumonia (LLL consolidation on CT) \-- Constipation with significant rectal stool burden; possible colitis \-- Hypoxia on admission (now on 2 L NC) \-- Tachycardia (up to 105 bpm at times) \-- COPD (oxygen independence per transcript) \-- Dementia; depression; anxiety \-- Prior stroke \-- Chronic dysphagia with G-tube dependence \-- Poor oral/enteral intake prior to presentation; no bowel movements prior to admission, now with multiple BMs in last 24 hours Assessment This is a 69 y.o. male with a past medical history of COPD (oxygen independence per transcript), dementia, depression, anxiety, stroke, and chronic dysphagia with a history of G-tube placement, who presents after G-tube dislodgement with decreased feeds and constipation. G-tube was successfully replaced endoscopically on 01/[address] Gonzalez. Since 12/27 per transcript, patient has had persistent leukocytosis (peak WBC 28.828.9) without fevers; tachycardic at times (to 105). Hypoxia on admission (SpO2 94% RA), improved on 2 L NC (now 100%). Chest X-ray without acute intrathoracic process; CT noted significant rectal stool burden with possible rectal wall thickening/distension (possible stercoral colitis/constipation) and a large consolidation in the left lower lobe (LLL), with trace interstitial markings in the right posterior basilar segment. Clinical picture raises concern for aspiration related to the periprocedural endoscopy with possible superimposed pneumonia; colitis also on the differential. Multiple bowel movements over the last 24 hours may improve the inflammatory picture. 02/28: having multiple BMS MRSA nares positive, over suspicion for MRSA pneumonia is low. Plan: \-- switch Zosyn to Ceftriaxone for pneumonia and colitis. \-- Blood cultures have been ordered; follow up and narrow/stop antibiotics based on clinical course and culture results. \-- Do not anticipate antibiotics on discharge if clinical course improves; finalize plan pending trajectory and microbiology. \-- Continue bronchodilators and supplemental O2 as needed to maintain adequate oxygen saturation. \-- Supportive care for constipation/colitis per primary team; note that patient has had multiple bowel movements in the last 24 hours. Isolation Precautions: standard \*Plan is subject to change pending incorporation of new incoming information/diagnostics. Updates may be added as addendum at the bottom (OR TOP) of this note. Thank you for the consult. ID will continue to follow. Please contact Infectious Disease for any questions or concerns. Radha Wheeler M.D. [facility] Ph: ? \ Physical Exam: General: NAD Neck: Supple. No masses. HEENT: PERRL. Normal lids and conjunctiva. Moist mucous membranes. Oropharynx without lesions, exudates or excessive erythema. Normal appearance of the external aspects of the nose and ears. Heart: Regular rhythm, normal rate. No murmur. No lower extremity edema. Lungs: Normal respiratory effort. Clear to auscultation bilaterally. No wheezes. No crackles. Abdomen: Soft. Non-tender. Non-distended. No masses or abdominal hernia. Abdomen noted to be concave. G-tube present cdi Msk: No digital cyanosis. Normal strength and tone in all 4 limbs Skin: Warm and dry, no rashes. Neuro: Alert. No facial droop or slurred speech. Extra-ocular movements intact. Sensation intact to soft touch in all 4 limbs. Psych: Appropriate mood. Full affect. Oriented to person, place, time, and situation. Dietary Evaluation Review Comments: Nutrition Recommendation: 1) EN Jevity 1.2Cal @ 60ml/hr x 24hr (goal). Water flush 150ml Q6H if allowed, adjust PRN. TF at goal volume provides 1728 kcal (100%), 80 gm protein (100%), and 1762 ml free water(including flush). 2) Taper off Clinimx if pt tolerate TF @ 40ml/hr 3) Monitor NPO status, lab values, weight trend, and I/O Expected Outcomes/Goals: Intake to meet >75% estimated needs FU 2-3 days RADHA WHEELER MD Feb 02, 2025 17:50
== END 2025-02-01 19:57 | disposition home health service (06) | DRG 393 ==
LOC: EDBD 14:36 → ER 14:36 → OVERFLOW 19:15 → WEST WING 01-26 12:43 → TELE-WESTW 01-27 00:09 → TELE-EAST 01-30 21:43
PROVIDERS: ADMIT Internal Medicine; ATTEND Internal Medicine
PROC: 0DH68UZ Insertion of Feeding Device into Stomach, Via Natural or Artificial Opening Endoscopic (ICD-10-PCS; 2025-01-27)
PROC: 0DP68UZ Removal of Feeding Device from Stomach, Via Natural or Artificial Opening Endoscopic (ICD-10-PCS; principal; 2025-01-27 14:35)
DX: K94.23 Gastrostomy malfunction (principal); J69.0 Pneumonitis due to inhalation of food and vomit; R62.7 Adult failure to thrive; Z99.81 Dependence on supplemental oxygen; J96.11 Chronic respiratory failure with hypoxia; J44.9 Chronic obstructive pulmonary disease, unspecified; G30.9 Alzheimer's disease, unspecified; F02.84 Dementia in other diseases classified elsewhere, unspecified severity, with anxiety; F02.83 Dementia in other diseases classified elsewhere, unspecified severity, with mood disturbance; Z68.1 Body mass index [BMI] 19.9 or less, adult; E87.5 Hyperkalemia; K29.70 Gastritis, unspecified, without bleeding; K59.00 Constipation, unspecified; K52.89 Other specified noninfective gastroenteritis and colitis; Z74.01 Bed confinement status; Z86.73 Personal history of transient ischemic attack (TIA), and cerebral infarction without residual deficits; Z79.899 Other long term (current) drug therapy; R13.10 Dysphagia, unspecified; Y84.8 Other medical procedures as the cause of abnormal reaction of the patient, or of later complication, without mention of misadventure at the time of the procedure; Y92.89 Other specified places as the place of occurrence of the external cause
CPT/HCPCS: 36415; 71045; 74176; 80048; 80053; 80076; 80202; 81001; 82962; 83735; 84100; 84478; 85007; 85025; 85027; 85610; 85730; 86850; 86900; 86901; 87040; 87081; 93005; 94640; G0378; J0690; J1815; J2003; J2470; J2543; J2704